=== PATIENT | female | born 1965 | race Caucasian/White ===

== ENCOUNTER 2018-05-23 09:00 | Outpatient (RCR) | payer OTHER, SELFPAY ==
--- NOTE | 2018-03-11 07:50 | PT.OIE ---
Current Diagnoses Other female genital prolapse (03/07/18) Past Surgical History (Last Updated 02/08/18 @ 11:02 by Yaneli Main) Status post bilateral salpingo-oophorectomy (BSO) (Resolved 11/26/17) Status post laparoscopic supracervical hysterectomy (Resolved 11/26/17) Provider Visit Care Team Role Provider Type Summer Conteh PA-C Family Provider Advanced Pacu Rn Primary Care Provider Specialty: Medical Address: [address] [place] [address], [address] Email: [email or web address] Lucy Ling MD Attending Provider Physician Specialty: PETROLEUM INSPECTOR Address: [address] [place] [address], [address] Email: [email or web address] Physical Therapy Initial Evaluation PT-OP-A Visit Information Start: 03/11/18 07:26 Freq: Status: Active Protocol: Document 03/07/18 09:00 [facility] (Rec: 03/11/18 07:50 [facility] [email or web address]) Out-Patient Physical Therapy Visit Information Visit Information Visit Type Initial Evaluation Visit Start Time 09:00 Visit Stop Time 09:45 Total Visit Minutes 45 Visit Number 1 Evaluation Information Evaluation Date 03/07/18 PT-OP-B Current Condition Start: 03/11/18 07:26 Freq: Status: Active Protocol: Document 03/07/18 09:00 [facility] (Rec: 03/11/18 07:50 [facility] [email or web address]) Current Condition History of Current Condition Onset Date symptoms began 6-7 years ago Current Complaints pelvic floor weakness, pelvic pressure and heaviness History of Current Condition Charmaine describes symptoms that began after her babies were born. She had 3 vaginal deliveries and followign these under went a umbilical hernia repair. 6-7 years ago she began feeling pelvic pressure symptoms and had to stop running. Fibroids were discovered and she elected to undergo a complete hysterectomy 11/26/17. Fracisco reports her surgery went well she did have a hematoma right about the pubic bone following surgery and she is still a little tender in this area. She reports recently she began feeling like she was getting a UTI but has increased her water consumption and this has helped. Her chief complaint at this time is pelvic pressure and inability to run for exercise. Treatment Goals Patient/Caregiver Goals To eliminate pelvic pressure allowing her to be more active again PT-OP-F Manual Assessment Start: 03/11/18 07:26 Freq: Status: Active Protocol: Document 03/07/18 09:00 [facility] (Rec: 03/11/18 07:50 [facility] [email or web address]) Manual Assessments Soft Tissue Assessment Soft Tissue Mobility Assessment Myofascial tightness in the suprapubic fascia and over the bladder Joint Mobility Assessment Joint Mobility Assessment + ASLR test for SI instability on the right side PT-OP-I Pelvic Floor Start: 03/11/18 07:26 Freq: Status: Active Protocol: Document 03/07/18 09:00 [facility] (Rec: 03/11/18 07:50 [facility] [email or web address]) Pelvic Floor Assessment Urine Pelvic Floor Surgery hysterectomy Urinary Symptoms Prolapse Falling Out Feeling/Heavy Leakage Cause Cough Exercise Other Leakage Causes only with hard coughing or running Pelvic Clock Pelvic Clock 12-3 Atrophy Pelvic Clock 3-6 Atrophy Pelvic Clock 6-9 Atrophy Pelvic Clock 9-12 Atrophy Pelvic Clock Other Jacqeuline is able to facilitate her pelvic floor but is weaker Left>Right illiococcygeus and has difficult with lateral wall recruitment Prolapse Cystocele Grade 2 Contraction Ability Manual Muscle Testing Left 2 Manual Muscle Testing Right 3 Manual Muscle Testing Anterior 3 Manual Muscle Testing Posterior 3 Muscle Endurance (Seconds) 4 PT-OP-M Strength Start: 03/11/18 07:26 Freq: Status: Active Protocol: Document 03/07/18 09:00 [facility] (Rec: 03/11/18 07:50 [facility] [email or web address]) Trunk Strength Trunk Manual Muscle Testing Core Stabilization Decreased ability to facilitate the transverse abdominal muscle and positive ASLR test on the right for left sided instability Hip Strength Hip Manual Muscle Testing Right Abduction 4 Good External Rotation 4 Good Left Abduction 3+ Fair+ External Rotation 3+ Fair+ PT-OP-T Assessment and Plan Start: 03/11/18 07:26 Freq: Status: Active Protocol: Document 03/07/18 09:00 [facility] (Rec: 03/11/18 07:50 [facility] [email or web address]) Physical Therapy Assessment Rehab Potential Rehabilitation Potential Excellent Evaluation Complexity Number of Personal Factors/Comorbidities 0 Number of Body Systems Impaired 1-2 Clinical Presentation at Evaluation Stable Impairments Impairments Activity Tolerance Functional Activities Soft Tissue Mobility Strength Tone Goals Four Impairment Myofascial restrictions across the suprapubic fascia Short Term Goal (STG) Decrease myofascial restrictions across the subrapubic fascia with stretches and MFR STG Duration 5 weeks Three Impairment Decreased endurance of the pelvic floor Short Term Goal (STG) Improve endurance of the pelvic floor contraction to 10 second hold time or greater in supine STG Duration 5 weeks Two Impairment Weakness of the pelvic floor musculature Title Searcher Goal (LTG) Improve pelvic floor strength to 4/5 or greater with MMT LTG Duration 8 weeks One Impairment complaints of pelvic floor weakness and pelvic pressure worse with standing Prison Goal (LTG) Deidra is educated in pelvic floor facilitation and strengthening and with improved strength she has decreased complaints of pelvic pressure LTG Duration 8 weeks Assessment Summary Assessment Deidra presents to PT s/p total hysterectomy on 11/25/17 and with a history of pelvic pressure and heaviness that began after childbirth and vaginal deliveries x 3. She has weakness throughout the levator ani with the greatest deficit on the left lateral wall of the levator ani. She is also weak in with her transverse abdominal muscles on this side as well with pelvic instability and decreased force closure on the left SI joint. She is limited with endurance as well . She is a great candidate for pelvic floor strengthening utilizing EMG biofeedback and NMES for improved sensation of pelvic floor contraction. Thank you for this referral. Physical Therapy Plan Frequency and Duration Frequency of Treatment 1x/Week Duration of Treatment 8 weeks Plan of Care Start Date 03/07/18 Plan of Care End Date 05/02/18 Therapeutic Interventions Therapeutic Interventions Home Exercise Program Manual Therapy Neuromuscular Re-education Self-Care/Home Management Soft Tissue Mobilization Therapeutic Exercises Modalities Biofeedback Electric Stimulation Other Therapeutic Interventions home rental of NMES unit for improved pelvic floor facilitation
--- NOTE | 2018-03-11 07:50 | PT.OPPOC ---
Current Diagnoses Other female genital prolapse (03/07/18) Provider Visit Care Team Role Provider Type Summer Conteh PA-C Family Provider Advanced Returns Clerk Primary Care Provider Specialty: Medical Address: [address] [place] [address], [address] Email: [email or web address] Lucy Ling MD Attending Provider Physician Specialty: PESTICIDE CHEMIST Address: [address] [place] [address], [address] Email: [email or web address] Plan Of Care PT-OP-T Assessment and Plan Start: 03/11/18 07:26 Freq: Status: Active Protocol: Document 03/07/18 09:00 [facility] (Rec: 03/11/18 07:50 [facility] [email or web address]) Physical Therapy Assessment Rehab Potential Rehabilitation Potential Excellent Evaluation Complexity Number of Personal Factors/Comorbidities 0 Number of Body Systems Impaired 1-2 Clinical Presentation at Evaluation Stable Impairments Impairments Activity Tolerance Functional Activities Soft Tissue Mobility Strength Tone Goals Four Impairment Myofascial restrictions across the suprapubic fascia Short Term Goal (STG) Decrease myofascial restrictions across the subrapubic fascia with stretches and MFR STG Duration 5 weeks Three Impairment Decreased endurance of the pelvic floor Short Term Goal (STG) Improve endurance of the pelvic floor contraction to 10 second hold time or greater in supine STG Duration 5 weeks Two Impairment Weakness of the pelvic floor musculature Shelter Goal (LTG) Improve pelvic floor strength to 4/5 or greater with MMT LTG Duration 8 weeks One Impairment complaints of pelvic floor weakness and pelvic pressure worse with standing Shelter Goal (LTG) Deidra is educated in pelvic floor facilitation and strengthening and with improved strength she has decreased complaints of pelvic pressure LTG Duration 8 weeks Assessment Summary Assessment Deidra presents to PT s/p total hysterectomy on 11/25/17 and with a history of pelvic pressure and heaviness that began after childbirth and vaginal deliveries x 3. She has weakness throughout the levator ani with the greatest deficit on the left lateral wall of the levator ani. She is also weak in with her transverse abdominal muscles on this side as well with pelvic instability and decreased force closure on the left SI joint. She is limited with endurance as well . She is a great candidate for pelvic floor strengthening utilizing EMG biofeedback and NMES for improved sensation of pelvic floor contraction. Thank you for this referral. Physical Therapy Plan Frequency and Duration Frequency of Treatment 1x/Week Duration of Treatment 8 weeks Plan of Care Start Date 03/07/18 Plan of Care End Date 05/02/18 Therapeutic Interventions Therapeutic Interventions Home Exercise Program Manual Therapy Neuromuscular Re-education Self-Care/Home Management Soft Tissue Mobilization Therapeutic Exercises Modalities Biofeedback Electric Stimulation Other Therapeutic Interventions home rental of NMES unit for improved pelvic floor facilitation Plan of Care Dates Plan of Care Start Date 03/07/18 Plan of Care End Date 05/02/18 Please Sign and Return: I have reviewed this Plan of Care and certify that the skilled therapy services above are required to meet the patient?s needs. Physician Signature Date Printed Name and Credentials Clinical Instructor Signature Printed Name and Credentials
--- NOTE | 2018-03-21 18:37 | PT.OTN ---
Current Diagnoses Other female genital prolapse (03/21/18) Physical Therapy Treatment Note PT-OP-A Visit Information Start: 03/11/18 07:26 Freq: Status: Active Protocol: Document 03/21/18 09:00 [facility] (Rec: 03/21/18 12:56 [facility] [email or web address]) Out-Patient Physical Therapy Visit Information Visit Information Visit Type Treatment Note Visit Start Time 09:00 Visit Stop Time 09:45 Total Visit Minutes 45 Visit Number 2 Evaluation Information Evaluation Date 03/07/18 PT-OP-B Current Condition Start: 03/11/18 07:26 Freq: Status: Active Protocol: Document 03/07/18 09:00 [facility] (Rec: 03/11/18 07:50 [facility] [email or web address]) Current Condition History of Current Condition Onset Date symptoms began 6-7 years ago Current Complaints pelvic floor weakness, pelvic pressure and heaviness History of Current Condition Charmaine describes symptoms that began after her babies were born. She had 3 vaginal deliveries and followign these under went a umbilical hernia repair. 6-7 years ago she began feeling pelvic pressure symptoms and had to stop running. Fibroids were discovered and she elected to undergo a complete hysterectomy 11/26/17. Fracisco reports her surgery went well she did have a hematoma right about the pubic bone following surgery and she is still a little tender in this area. She reports recently she began feeling like she was getting a UTI but has increased her water consumption and this has helped. Her chief complaint at this time is pelvic pressure and inability to run for exercise. Treatment Goals Patient/Caregiver Goals To eliminate pelvic pressure allowing her to be more active again PT-OP-F Manual Assessment Start: 03/11/18 07:26 Freq: Status: Active Protocol: Document 03/07/18 09:00 [facility] (Rec: 03/11/18 07:50 [facility] [email or web address]) Manual Assessments Soft Tissue Assessment Soft Tissue Mobility Assessment Myofascial tightness in the suprapubic fascia and over the bladder Joint Mobility Assessment Joint Mobility Assessment + ASLR test for SI instability on the right side PT-OP-I Pelvic Floor Start: 03/11/18 07:26 Freq: Status: Active Protocol: Document 03/07/18 09:00 [facility] (Rec: 03/11/18 07:50 [facility] [email or web address]) Pelvic Floor Assessment Urine Pelvic Floor Surgery hysterectomy Urinary Symptoms Prolapse Falling Out Feeling/Heavy Leakage Cause Cough Exercise Other Leakage Causes only with hard coughing or running Pelvic Clock Pelvic Clock 12-3 Atrophy Pelvic Clock 3-6 Atrophy Pelvic Clock 6-9 Atrophy Pelvic Clock 9-12 Atrophy Pelvic Clock Other Vicki is able to facilitate her pelvic floor but is weaker Left>Right illiococcygeus and has difficult with lateral wall recruitment Prolapse Cystocele Grade 2 Contraction Ability Manual Muscle Testing Left 2 Manual Muscle Testing Right 3 Manual Muscle Testing Anterior 3 Manual Muscle Testing Posterior 3 Muscle Endurance (Seconds) 4 PT-OP-M Strength Start: 03/11/18 07:26 Freq: Status: Active Protocol: Document 03/07/18 09:00 [facility] (Rec: 03/11/18 07:50 [facility] [email or web address]) Trunk Strength Trunk Manual Muscle Testing Core Stabilization Decreased ability to facilitate the transverse abdominal muscle and positive ASLR test on the right for left sided instability Hip Strength Hip Manual Muscle Testing Right Abduction 4 Good External Rotation 4 Good Left Abduction 3+ Fair+ External Rotation 3+ Fair+ PT-OP-Q Treatments Start: 03/11/18 07:26 Freq: Status: Active Protocol: Document 03/21/18 09:00 [facility] (Rec: 03/21/18 18:34 [facility] [email or web address]) Therapeutic Exercises Supine Exercises 3 Supine Exercise Name ball squeeze with pelvic floor contractions 2 Supine Exercise Name pelvic floor long holds with EMG biofeedback 1 Supine Exercise Name TA brace with marches Manual Therapy Treatment Soft Tissue Mobilization 1 Body Location MFR over the supra pubic fascia and ILU massage Manual Techniques 1 Type MET right anterior rotation PT-OP-T Assessment and Plan Start: 03/11/18 07:26 Freq: Status: Active Protocol: Document 03/21/18 09:00 [facility] (Rec: 03/21/18 12:56 [facility] [email or web address]) Physical Therapy Assessment Assessment Summary Assessment Began EMG biofeedback today and Deidra was able to get 10.3 uv average and 16.3 uv max contraction. We worked on MFR of the suprapubic fascia and she was instructed in ILU self massage. Physical Therapy Plan Frequency and Duration Frequency of Treatment 1x/Week Duration of Treatment 8 weeks Plan of Care Start Date 03/07/18 Plan of Care End Date 05/02/18 Therapeutic Interventions Therapeutic Interventions Home Exercise Program Manual Therapy Neuromuscular Re-education Self-Care/Home Management Soft Tissue Mobilization Therapeutic Exercises Modalities Biofeedback Electric Stimulation Other Therapeutic Interventions home rental of NMES unit for improved pelvic floor facilitation Next Visit Focus/Plan Next Note Type Treatment Note Next Visit Plan continue working on pelvic floor stabilization and SI joint stabilization
--- NOTE | 2018-04-04 11:55 | PT.OTN ---
Current Diagnoses Other female genital prolapse (04/04/18) Physical Therapy Treatment Note PT-OP-A Visit Information Start: 03/11/18 07:26 Freq: Status: Active Protocol: Document 04/04/18 11:48 [facility] (Rec: 04/04/18 11:54 [facility] [email or web address]) Out-Patient Physical Therapy Visit Information Visit Information Visit Type Treatment Note Visit Start Time 09:00 Visit Stop Time 09:45 Total Visit Minutes 45 Visit Number 3 PT-OP-B Current Condition Start: 03/11/18 07:26 Freq: Status: Active Protocol: Document 03/07/18 09:00 [facility] (Rec: 03/11/18 07:50 [facility] [email or web address]) Current Condition History of Current Condition Onset Date symptoms began 6-7 years ago Current Complaints pelvic floor weakness, pelvic pressure and heaviness History of Current Condition Charmaine describes symptoms that began after her babies were born. She had 3 vaginal deliveries and followign these under went a umbilical hernia repair. 6-7 years ago she began feeling pelvic pressure symptoms and had to stop running. Fibroids were discovered and she elected to undergo a complete hysterectomy 11/26/17. Fracisco reports her surgery went well she did have a hematoma right about the pubic bone following surgery and she is still a little tender in this area. She reports recently she began feeling like she was getting a UTI but has increased her water consumption and this has helped. Her chief complaint at this time is pelvic pressure and inability to run for exercise. Treatment Goals Patient/Caregiver Goals To eliminate pelvic pressure allowing her to be more active again PT-OP-C Subjective Start: 04/04/18 11:54 Freq: Status: Active Protocol: Document 04/04/18 11:54 [facility] (Rec: 04/04/18 11:55 [facility] [email or web address]) OP-PT Subjective Patient Comments Patient Comments Deidra reports she traveled this past week so it was difficult getting in all of her exercises. She did feel like she was getting symptoms of a UTI when she got home and has been trying to increase her water intake PT-OP-F Manual Assessment Start: 03/11/18 07:26 Freq: Status: Active Protocol: Document 03/07/18 09:00 [facility] (Rec: 03/11/18 07:50 [facility] [email or web address]) Manual Assessments Soft Tissue Assessment Soft Tissue Mobility Assessment Myofascial tightness in the suprapubic fascia and over the bladder Joint Mobility Assessment Joint Mobility Assessment + ASLR test for SI instability on the right side PT-OP-I Pelvic Floor Start: 03/11/18 07:26 Freq: Status: Active Protocol: Document 03/07/18 09:00 [facility] (Rec: 03/11/18 07:50 [facility] [email or web address]) Pelvic Floor Assessment Urine Pelvic Floor Surgery hysterectomy Urinary Symptoms Prolapse Falling Out Feeling/Heavy Leakage Cause Cough Exercise Other Leakage Causes only with hard coughing or running Pelvic Clock Pelvic Clock 12-3 Atrophy Pelvic Clock 3-6 Atrophy Pelvic Clock 6-9 Atrophy Pelvic Clock 9-12 Atrophy Pelvic Clock Other Jacqeucarine is able to facilitate her pelvic floor but is weaker Left>Right illiococcygeus and has difficult with lateral wall recruitment Prolapse Cystocele Grade 2 Contraction Ability Manual Muscle Testing Left 2 Manual Muscle Testing Right 3 Manual Muscle Testing Anterior 3 Manual Muscle Testing Posterior 3 Muscle Endurance (Seconds) 4 PT-OP-M Strength Start: 03/11/18 07:26 Freq: Status: Active Protocol: Document 03/07/18 09:00 [facility] (Rec: 03/11/18 07:50 [facility] [email or web address]) Trunk Strength Trunk Manual Muscle Testing Core Stabilization Decreased ability to facilitate the transverse abdominal muscle and positive ASLR test on the right for left sided instability Hip Strength Hip Manual Muscle Testing Right Abduction 4 Good External Rotation 4 Good Left Abduction 3+ Fair+ External Rotation 3+ Fair+ PT-OP-Q Treatments Start: 03/11/18 07:26 Freq: Status: Active Protocol: Document 04/04/18 11:48 [facility] (Rec: 04/04/18 11:54 [facility] [email or web address]) Therapeutic Exercises Supine Exercises 5 Supine Exercise Name iliopsoas stretch in anastasiya test position Comments Right tighter than left 4 Supine Exercise Name quick contractions 3 Supine Exercise Name ball squeeze with pelvic floor contractions 2 Supine Exercise Name pelvic floor long holds with EMG biofeedback Comments 10 seconds on 10 seconds off 1 Supine Exercise Name TA brace with marches Comments added in level 1 b and heel slides Sidelying Exercises 1 Sidelying Exercise Name clam shells Reps/Minutes 2 x 10 Manual Therapy Treatment Soft Tissue Mobilization 1 Body Location MFR over the supra pubic fascia and ILU massage Self-Care/Home Management Treatment Education Patient Education Home Exercise Program Other Education education on taking time to empty the bladder and stretching arms overhead to fully eliminate the urine from the urethra PT-OP-T Assessment and Plan Start: 03/11/18 07:26 Freq: Status: Active Protocol: Document 04/04/18 11:48 [facility] (Rec: 04/04/18 11:54 [facility] [email or web address]) Physical Therapy Assessment Assessment Summary Assessment improved average on EMG biofeedback today to 12.0 uv and maximum of 24.4 uv. Reviewed ILU massage and worked to release right sided myofascial tightness. Added in clam shells and level 1 b lower abdominal progression. Bilateral hips are shakey with the clam shell exercise Physical Therapy Plan Frequency and Duration Frequency of Treatment 1x/Week Duration of Treatment 8 weeks Plan of Care Start Date 03/07/18 Plan of Care End Date 05/02/18 Therapeutic Interventions Therapeutic Interventions Home Exercise Program Manual Therapy Neuromuscular Re-education Self-Care/Home Management Soft Tissue Mobilization Therapeutic Exercises Modalities Biofeedback Electric Stimulation Other Therapeutic Interventions home rental of NMES unit for improved pelvic floor facilitation, trial of NMES next visit Next Visit Focus/Plan Next Note Type Treatment Note Next Visit Plan continue working on pelvic floor stabilization and SI joint stabilization. Trial of NMES unit if Deidra bowser
--- NOTE | 2018-04-14 14:33 | PT.OTN ---
Current Diagnoses Other female genital prolapse (04/11/18) Physical Therapy Treatment Note PT-OP-A Visit Information Start: 03/11/18 07:26 Freq: Status: Active Protocol: Document 04/11/18 09:00 [facility] (Rec: 04/14/18 14:33 [facility] [email or web address]) Out-Patient Physical Therapy Visit Information Visit Information Visit Type Treatment Note Visit Start Time 09:00 Visit Stop Time 09:45 Total Visit Minutes 45 Visit Number 4 Evaluation Information Evaluation Date 03/07/18 PT-OP-B Current Condition Start: 03/11/18 07:26 Freq: Status: Active Protocol: Document 03/07/18 09:00 [facility] (Rec: 03/11/18 07:50 [facility] [email or web address]) Current Condition History of Current Condition Onset Date symptoms began 6-7 years ago Current Complaints pelvic floor weakness, pelvic pressure and heaviness History of Current Condition Charmaine describes symptoms that began after her babies were born. She had 3 vaginal deliveries and followign these under went a umbilical hernia repair. 6-7 years ago she began feeling pelvic pressure symptoms and had to stop running. Fibroids were discovered and she elected to undergo a complete hysterectomy 11/26/17. Fracisco reports her surgery went well she did have a hematoma right about the pubic bone following surgery and she is still a little tender in this area. She reports recently she began feeling like she was getting a UTI but has increased her water consumption and this has helped. Her chief complaint at this time is pelvic pressure and inability to run for exercise. Treatment Goals Patient/Caregiver Goals To eliminate pelvic pressure allowing her to be more active again PT-OP-C Subjective Start: 04/04/18 11:54 Freq: Status: Active Protocol: Document 04/11/18 09:00 [facility] (Rec: 04/14/18 14:33 [facility] [email or web address]) OP-PT Subjective Patient Comments Patient Comments still has daysd where she is feeling pelvic pressure and soreness in the anterior pelvic region PT-OP-F Manual Assessment Start: 03/11/18 07:26 Freq: Status: Active Protocol: Document 03/07/18 09:00 [facility] (Rec: 03/11/18 07:50 [facility] [email or web address]) Manual Assessments Soft Tissue Assessment Soft Tissue Mobility Assessment Myofascial tightness in the suprapubic fascia and over the bladder Joint Mobility Assessment Joint Mobility Assessment + ASLR test for SI instability on the right side PT-OP-I Pelvic Floor Start: 03/11/18 07:26 Freq: Status: Active Protocol: Document 03/07/18 09:00 [facility] (Rec: 03/11/18 07:50 [facility] [email or web address]) Pelvic Floor Assessment Urine Pelvic Floor Surgery hysterectomy Urinary Symptoms Prolapse Falling Out Feeling/Heavy Leakage Cause Cough Exercise Other Leakage Causes only with hard coughing or running Pelvic Clock Pelvic Clock 12-3 Atrophy Pelvic Clock 3-6 Atrophy Pelvic Clock 6-9 Atrophy Pelvic Clock 9-12 Atrophy Pelvic Clock Other Vicki is able to facilitate her pelvic floor but is weaker Left>Right illiococcygeus and has difficult with lateral wall recruitment Prolapse Cystocele Grade 2 Contraction Ability Manual Muscle Testing Left 2 Manual Muscle Testing Right 3 Manual Muscle Testing Anterior 3 Manual Muscle Testing Posterior 3 Muscle Endurance (Seconds) 4 PT-OP-M Strength Start: 03/11/18 07:26 Freq: Status: Active Protocol: Document 03/07/18 09:00 [facility] (Rec: 03/11/18 07:50 [facility] [email or web address]) Trunk Strength Trunk Manual Muscle Testing Core Stabilization Decreased ability to facilitate the transverse abdominal muscle and positive ASLR test on the right for left sided instability Hip Strength Hip Manual Muscle Testing Right Abduction 4 Good External Rotation 4 Good Left Abduction 3+ Fair+ External Rotation 3+ Fair+ PT-OP-Q Treatments Start: 03/11/18 07:26 Freq: Status: Active Protocol: Document 04/11/18 09:00 [facility] (Rec: 04/14/18 14:33 [facility] [email or web address]) Therapeutic Exercises Supine Exercises 5 Supine Exercise Name iliopsoas stretch in anastasiya test position Comments Right tighter than left 4 Supine Exercise Name quick contractions 3 Supine Exercise Name ball squeeze with pelvic floor contractions 2 Supine Exercise Name pelvic floor long holds with EMG biofeedback 1 Supine Exercise Name TA brace with mounikaes Manual Therapy Treatment Soft Tissue Mobilization 1 Body Location MFR over the supra pubic fascia and ILU massage PT-OP-T Assessment and Plan Start: 03/11/18 07:26 Freq: Status: Active Protocol: Document 04/11/18 09:00 [facility] (Rec: 04/14/18 14:33 [facility] [email or web address]) Physical Therapy Assessment Assessment Summary Assessment max on EMG biofeedback is 23 today. encouraged HEP as Deidra can tolerate. 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 Begin working on strengthening in upright positions Physical Therapy Plan Frequency and Duration Frequency of Treatment 1x/Week Duration of Treatment 8 weeks Plan of Care Start Date 03/07/18 Plan of Care End Date 05/02/18 Therapeutic Interventions Therapeutic Interventions Home Exercise Program Manual Therapy Neuromuscular Re-education Self-Care/Home Management Soft Tissue Mobilization Therapeutic Exercises Modalities Biofeedback Electric Stimulation Other Therapeutic Interventions home rental of NMES unit for improved pelvic floor facilitation, trial of NMES next visit Next Visit Focus/Plan Next Note Type Treatment Note Next Visit Plan continue working on pelvic floor stabilization and SI joint stabilization. Trial of NMES unit if Deidra agrees
--- NOTE | 2018-05-09 11:57 | PT.OTN ---
Current Diagnoses Other female genital prolapse (05/09/18) Physical Therapy Treatment Note PT-OP-A Visit Information Start: 03/11/18 07:26 Freq: Status: Active Protocol: Document 05/09/18 11:48 [facility] (Rec: 05/09/18 11:55 [facility] [email or web address]) Out-Patient Physical Therapy Visit Information Visit Information Visit Type Progress Note Visit Start Time 09:00 Visit Stop Time 09:45 Total Visit Minutes 45 Visit Number 5 Evaluation Information Evaluation Date 03/07/18 PT-OP-B Current Condition Start: 03/11/18 07:26 Freq: Status: Active Protocol: Document 03/07/18 09:00 [facility] (Rec: 03/11/18 07:50 [facility] [email or web address]) Current Condition History of Current Condition Onset Date symptoms began 6-7 years ago Current Complaints pelvic floor weakness, pelvic pressure and heaviness History of Current Condition Charmaine describes symptoms that began after her babies were born. She had 3 vaginal deliveries and followign these under went a umbilical hernia repair. 6-7 years ago she began feeling pelvic pressure symptoms and had to stop running. Fibroids were discovered and she elected to undergo a complete hysterectomy 11/26/17. Fracisco reports her surgery went well she did have a hematoma right about the pubic bone following surgery and she is still a little tender in this area. She reports recently she began feeling like she was getting a UTI but has increased her water consumption and this has helped. Her chief complaint at this time is pelvic pressure and inability to run for exercise. Treatment Goals Patient/Caregiver Goals To eliminate pelvic pressure allowing her to be more active again PT-OP-C Subjective Start: 04/04/18 11:54 Freq: Status: Active Protocol: Document 05/09/18 11:48 [facility] (Rec: 05/09/18 11:55 [facility] [email or web address]) OP-PT Subjective Patient Comments Patient Comments Silvana reports she is starting to be able to increase her activity and run a little. She suprised her self that she was able to run a bit and not feel the pressure. She does still feel some imflammation in her tissue on the right anterior pelvis where the hematoma was and by the end of her work day feels some pelvic pressure. SHe does note improvement PT-OP-F Manual Assessment Start: 03/11/18 07:26 Freq: Status: Active Protocol: Document 03/07/18 09:00 [facility] (Rec: 03/11/18 07:50 [facility] [email or web address]) Manual Assessments Soft Tissue Assessment Soft Tissue Mobility Assessment Myofascial tightness in the suprapubic fascia and over the bladder Joint Mobility Assessment Joint Mobility Assessment + ASLR test for SI instability on the right side PT-OP-I Pelvic Floor Start: 03/11/18 07:26 Freq: Status: Active Protocol: Document 03/07/18 09:00 [facility] (Rec: 03/11/18 07:50 [facility] [email or web address]) Pelvic Floor Assessment Urine Pelvic Floor Surgery hysterectomy Urinary Symptoms Prolapse Falling Out Feeling/Heavy Leakage Cause Cough Exercise Other Leakage Causes only with hard coughing or running Pelvic Clock Pelvic Clock 12-3 Atrophy Pelvic Clock 3-6 Atrophy Pelvic Clock 6-9 Atrophy Pelvic Clock 9-12 Atrophy Pelvic Clock Other Jacqeuline is able to facilitate her pelvic floor but is weaker Left>Right illiococcygeus and has difficult with lateral wall recruitment Prolapse Cystocele Grade 2 Contraction Ability Manual Muscle Testing Left 2 Manual Muscle Testing Right 3 Manual Muscle Testing Anterior 3 Manual Muscle Testing Posterior 3 Muscle Endurance (Seconds) 4 PT-OP-M Strength Start: 03/11/18 07:26 Freq: Status: Active Protocol: Document 03/07/18 09:00 [facility] (Rec: 03/11/18 07:50 [facility] [email or web address]) Trunk Strength Trunk Manual Muscle Testing Core Stabilization Decreased ability to facilitate the transverse abdominal muscle and positive ASLR test on the right for left sided instability Hip Strength Hip Manual Muscle Testing Right Abduction 4 Good External Rotation 4 Good Left Abduction 3+ Fair+ External Rotation 3+ Fair+ PT-OP-Q Treatments Start: 03/11/18 07:26 Freq: Status: Active Protocol: Document 05/09/18 11:48 [facility] (Rec: 05/09/18 11:55 [facility] [email or web address]) Therapeutic Exercises Supine Exercises 4 Supine Exercise Name quick contractions 3 Supine Exercise Name ball squeeze with pelvic floor contractions 2 Supine Exercise Name pelvic floor long holds with EMG biofeedback 1 Supine Exercise Name TA brace with marches Sidelying Exercises 2 Sidelying Exercise Name sidelying leg lifts Reps/Minutes 2 x 10 1 Sidelying Exercise Name clam shells Resistance yellow theraband Reps/Minutes 2 x 10 Other Exercises 4 Other Exercise Name cobra stretch for the anterior pelvic fascia 3 Other Exercise Name quadraped OA, OL OAL 2 Other Exercise Name foam roll stretch 1 Other Exercise Name iliopsoas stretch in a lunge position and half kneeling PT-OP-T Assessment and Plan Start: 03/11/18 07:26 Freq: Status: Active Protocol: Document 05/09/18 11:48 [facility] (Rec: 05/09/18 11:55 [facility] [email or web address]) Physical Therapy Assessment Progress Towards Goals Progress Towards Goals Progressing Toward Goals Assessment Summary Assessment Silvana has been seen for 6 visits in PT and is showing good overall progress with physical therapy. She is stronger in her pelvic floor and is noting she can tolerate a small amount of running now . She still feels some inflammation from where the hematoma was and we are working on improved tissue mobility in this region. She has been able to tolerate some dynamic stabilization exercises now as well. She would benefit from continued PT Physical Therapy Plan Frequency and Duration Frequency of Treatment 1x/Week Duration of Treatment 8 weeks Plan of Care Start Date 05/09/18 Plan of Care End Date 06/27/18 Therapeutic Interventions Therapeutic Interventions Home Exercise Program Manual Therapy Neuromuscular Re-education Self-Care/Home Management Soft Tissue Mobilization Therapeutic Activities Modalities Biofeedback
--- NOTE | 2018-05-16 14:02 | PT.OTN ---
Current Diagnoses Other female genital prolapse (05/16/18) Physical Therapy Treatment Note PT-OP-A Visit Information Start: 03/11/18 07:26 Freq: Status: Active Protocol: Document 05/16/18 13:55 [facility] (Rec: 05/16/18 14:01 [facility] [email or web address]) Out-Patient Physical Therapy Visit Information Visit Information Visit Type Treatment Note Visit Start Time 09:00 Visit Stop Time 09:45 Total Visit Minutes 45 Visit Number 6 Evaluation Information Evaluation Date 03/07/18 PT-OP-B Current Condition Start: 03/11/18 07:26 Freq: Status: Active Protocol: Document 03/07/18 09:00 [facility] (Rec: 03/11/18 07:50 [facility] [email or web address]) Current Condition History of Current Condition Onset Date symptoms began 6-7 years ago Current Complaints pelvic floor weakness, pelvic pressure and heaviness History of Current Condition Charmaine describes symptoms that began after her babies were born. She had 3 vaginal deliveries and followign these under went a umbilical hernia repair. 6-7 years ago she began feeling pelvic pressure symptoms and had to stop running. Fibroids were discovered and she elected to undergo a complete hysterectomy 11/26/17. Fracisco reports her surgery went well she did have a hematoma right about the pubic bone following surgery and she is still a little tender in this area. She reports recently she began feeling like she was getting a UTI but has increased her water consumption and this has helped. Her chief complaint at this time is pelvic pressure and inability to run for exercise. Treatment Goals Patient/Caregiver Goals To eliminate pelvic pressure allowing her to be more active again PT-OP-C Subjective Start: 04/04/18 11:54 Freq: Status: Active Protocol: Document 05/16/18 13:55 [facility] (Rec: 05/16/18 14:01 [facility] [email or web address]) OP-PT Subjective Patient Comments Patient Comments Silvana reports the stretches seem to help and things are better. She hasn't tried running again PT-OP-F Manual Assessment Start: 03/11/18 07:26 Freq: Status: Active Protocol: Document 03/07/18 09:00 [facility] (Rec: 03/11/18 07:50 [facility] [email or web address]) Manual Assessments Soft Tissue Assessment Soft Tissue Mobility Assessment Myofascial tightness in the suprapubic fascia and over the bladder Joint Mobility Assessment Joint Mobility Assessment + ASLR test for SI instability on the right side PT-OP-I Pelvic Floor Start: 03/11/18 07:26 Freq: Status: Active Protocol: Document 03/07/18 09:00 [facility] (Rec: 03/11/18 07:50 [facility] [email or web address]) Pelvic Floor Assessment Urine Pelvic Floor Surgery hysterectomy Urinary Symptoms Prolapse Falling Out Feeling/Heavy Leakage Cause Cough Exercise Other Leakage Causes only with hard coughing or running Pelvic Clock Pelvic Clock 12-3 Atrophy Pelvic Clock 3-6 Atrophy Pelvic Clock 6-9 Atrophy Pelvic Clock 9-12 Atrophy Pelvic Clock Other Jacqeuline is able to facilitate her pelvic floor but is weaker Left>Right illiococcygeus and has difficult with lateral wall recruitment Prolapse Cystocele Grade 2 Contraction Ability Manual Muscle Testing Left 2 Manual Muscle Testing Right 3 Manual Muscle Testing Anterior 3 Manual Muscle Testing Posterior 3 Muscle Endurance (Seconds) 4 PT-OP-M Strength Start: 03/11/18 07:26 Freq: Status: Active Protocol: Document 03/07/18 09:00 [facility] (Rec: 03/11/18 07:50 [facility] [email or web address]) Trunk Strength Trunk Manual Muscle Testing Core Stabilization Decreased ability to facilitate the transverse abdominal muscle and positive ASLR test on the right for left sided instability Hip Strength Hip Manual Muscle Testing Right Abduction 4 Good External Rotation 4 Good Left Abduction 3+ Fair+ External Rotation 3+ Fair+ PT-OP-Q Treatments Start: 03/11/18 07:26 Freq: Status: Active Protocol: Document 05/16/18 13:55 [facility] (Rec: 05/16/18 14:01 [facility] [email or web address]) Therapeutic Exercises Supine Exercises 6 Supine Exercise Name roll outs with theraband 5 Supine Exercise Name iliopsoas stretch in anastasiya test position Comments Right tighter than left 4 Supine Exercise Name quick contractions 2 Supine Exercise Name pelvic floor long holds with EMG biofeedback Other Exercises 4 Other Exercise Name cobra stretch for the anterior pelvic fascia 3 Other Exercise Name quadraped OA, OL OAL 2 Other Exercise Name foam roll stretch 1 Other Exercise Name iliopsoas stretch in a lunge position and half kneeling PT-OP-T Assessment and Plan Start: 03/11/18 07:26 Freq: Status: Active Protocol: Document 05/16/18 13:55 [facility] (Rec: 05/16/18 14:01 [facility] [email or web address]) Physical Therapy Assessment Assessment Summary Assessment improved contraction intensity today. Her average strength in March was 10.3 uv and now it is 20 uv. Physical Therapy Plan Next Visit Focus/Plan Next Note Type Treatment Note Next Visit Plan continue for one more visit and review all extablished exercises then most likely DC to a HEP
--- NOTE | 2018-05-28 17:32 | PT.OTN ---
Current Diagnoses Other female genital prolapse (05/23/18) Physical Therapy Treatment Note PT-OP-A Visit Information Start: 03/11/18 07:26 Freq: Status: Active Protocol: Document 05/23/18 17:44 [facility] (Rec: 05/23/18 17:45 [facility] [email or web address]) Out-Patient Physical Therapy Visit Information Visit Information Visit Type Treatment Note Visit Start Time 09:00 Visit Stop Time 09:45 Total Visit Minutes 45 Visit Number 7 PT-OP-B Current Condition Start: 03/11/18 07:26 Freq: Status: Active Protocol: Document 03/07/18 09:00 [facility] (Rec: 03/11/18 07:50 [facility] [email or web address]) Current Condition History of Current Condition Onset Date symptoms began 6-7 years ago Current Complaints pelvic floor weakness, pelvic pressure and heaviness History of Current Condition Charmaine describes symptoms that began after her babies were born. She had 3 vaginal deliveries and followign these under went a umbilical hernia repair. 6-7 years ago she began feeling pelvic pressure symptoms and had to stop running. Fibroids were discovered and she elected to undergo a complete hysterectomy 11/26/17. Fracisco reports her surgery went well she did have a hematoma right about the pubic bone following surgery and she is still a little tender in this area. She reports recently she began feeling like she was getting a UTI but has increased her water consumption and this has helped. Her chief complaint at this time is pelvic pressure and inability to run for exercise. Treatment Goals Patient/Caregiver Goals To eliminate pelvic pressure allowing her to be more active again PT-OP-C Subjective Start: 04/04/18 11:54 Freq: Status: Active Protocol: Document 05/23/18 17:44 [facility] (Rec: 05/23/18 17:45 [facility] [email or web address]) OP-PT Subjective Patient Comments Patient Comments Silvana reports she cut up a bunch of apples over the weekend and could really feel the pressure in her pelvic floor. She was sore for a few days in her anterior pelvis. PT-OP-F Manual Assessment Start: 03/11/18 07:26 Freq: Status: Active Protocol: Document 03/07/18 09:00 [facility] (Rec: 03/11/18 07:50 [facility] [email or web address]) Manual Assessments Soft Tissue Assessment Soft Tissue Mobility Assessment Myofascial tightness in the suprapubic fascia and over the bladder Joint Mobility Assessment Joint Mobility Assessment + ASLR test for SI instability on the right side PT-OP-I Pelvic Floor Start: 03/11/18 07:26 Freq: Status: Active Protocol: Document 03/07/18 09:00 [facility] (Rec: 03/11/18 07:50 [facility] [email or web address]) Pelvic Floor Assessment Urine Pelvic Floor Surgery hysterectomy Urinary Symptoms Prolapse Falling Out Feeling/Heavy Leakage Cause Cough Exercise Other Leakage Causes only with hard coughing or running Pelvic Clock Pelvic Clock 12-3 Atrophy Pelvic Clock 3-6 Atrophy Pelvic Clock 6-9 Atrophy Pelvic Clock 9-12 Atrophy Pelvic Clock Other Jacqeucarine is able to facilitate her pelvic floor but is weaker Left>Right illiococcygeus and has difficult with lateral wall recruitment Prolapse Cystocele Grade 2 Contraction Ability Manual Muscle Testing Left 2 Manual Muscle Testing Right 3 Manual Muscle Testing Anterior 3 Manual Muscle Testing Posterior 3 Muscle Endurance (Seconds) 4 PT-OP-M Strength Start: 03/11/18 07:26 Freq: Status: Active Protocol: Document 03/07/18 09:00 [facility] (Rec: 03/11/18 07:50 [facility] [email or web address]) Trunk Strength Trunk Manual Muscle Testing Core Stabilization Decreased ability to facilitate the transverse abdominal muscle and positive ASLR test on the right for left sided instability Hip Strength Hip Manual Muscle Testing Right Abduction 4 Good External Rotation 4 Good Left Abduction 3+ Fair+ External Rotation 3+ Fair+ PT-OP-Q Treatments Start: 03/11/18 07:26 Freq: Status: Active Protocol: Document 05/23/18 17:26 [facility] (Rec: 05/28/18 17:32 [facility] [email or web address]) Therapeutic Exercises Supine Exercises 6 Supine Exercise Name roll outs with theraband 4 Supine Exercise Name quick contractions 3 Supine Exercise Name ball squeeze with pelvic floor contractions 2 Supine Exercise Name pelvic floor long holds with EMG biofeedback 1 Supine Exercise Name TA brace with marches Other Exercises 4 Other Exercise Name cobra stretch for the anterior pelvic fascia 3 Other Exercise Name quadraped OA, OL OAL 2 Other Exercise Name foam roll stretch 1 Other Exercise Name iliopsoas stretch in a lunge position and half kneeling PT-OP-T Assessment and Plan Start: 03/11/18 07:26 Freq: Status: Active Protocol: Document 05/23/18 17:26 [facility] (Rec: 05/28/18 17:32 [facility] [email or web address]) Physical Therapy Assessment Progress Towards Goals Progress Towards Goals Progressing Toward Goals Assessment Summary Assessment Deidra has made good improvements with her strength of her pelvic floor. She has doubled her strength since she began therapy in March. We have worked on stretches to open up the right side of her pelvis where the hematoma was and she feels the stretching helps. She has done a little bit with running again. Deidra is still feeling pelvic pressure at times and especially after a day of working on her feet. She will continue her exercises and then follow up with Dr. Ling on possible bladder lift repair. Physical Therapy Plan Frequency and Duration Frequency of Treatment 1x/Week Duration of Treatment 8 weeks Plan of Care Start Date 05/09/18 Plan of Care End Date 06/27/18 Therapeutic Interventions Therapeutic Interventions Home Exercise Program Manual Therapy Neuromuscular Re-education Self-Care/Home Management Soft Tissue Mobilization Therapeutic Activities Modalities Biofeedback Discharge Physical Therapy Discharge Comments At this point Deidra is independent with her home program. She will continue to work on her strengthening and follow up with Dr. Ling
--- NOTE | 2018-10-02 10:56 | PT.OPDS ---
Current Diagnoses Other female genital prolapse (05/23/18) Provider Visit Care Team Role Provider Type Summer Conteh PA-C Family Provider Advanced Ornamental Painter Primary Care Provider Specialty: Medical Address: [facility] [place], [address] Email: [email or web address] Ling MD Attending Provider Physician Specialty: INJECTION MOLDING PROCESS TECHNICIAN Address: [address] [place] [address], [id number] Email: [email or web address] Visit Number Visit Number 7 Discharge Summary PT-OP-B Current Condition Start: 03/11/18 07:26 Freq: Status: Active Protocol: Document 03/07/18 09:00 [facility] (Rec: 03/11/18 07:50 [facility] [email or web address]) Current Condition History of Current Condition Onset Date symptoms began 6-7 years ago Current Complaints pelvic floor weakness, pelvic pressure and heaviness History of Current Condition Charmaine describes symptoms that began after her babies were born. She had 3 vaginal deliveries and followign these under went a umbilical hernia repair. 6-7 years ago she began feeling pelvic pressure symptoms and had to stop running. Fibroids were discovered and she elected to undergo a complete hysterectomy 11/26/17. Fracisco reports her surgery went well she did have a hematoma right about the pubic bone following surgery and she is still a little tender in this area. She reports recently she began feeling like she was getting a UTI but has increased her water consumption and this has helped. Her chief complaint at this time is pelvic pressure and inability to run for exercise. Treatment Goals Patient/Caregiver Goals To eliminate pelvic pressure allowing her to be more active again PT-OP-C Subjective Start: 04/04/18 11:54 Freq: Status: Active Protocol: Document 05/23/18 17:44 [facility] (Rec: 05/23/18 17:45 [facility] [email or web address]) OP-PT Subjective Patient Comments Patient Comments Silvana reports she cut up a bunch of apples over the weekend and could really feel the pressure in her pelvic floor. She was sore for a few days in her anterior pelvis. PT-OP-F Manual Assessment Start: 03/11/18 07:26 Freq: Status: Active Protocol: Document 03/07/18 09:00 [facility] (Rec: 03/11/18 07:50 [facility] [email or web address]) Manual Assessments Soft Tissue Assessment Soft Tissue Mobility Assessment Myofascial tightness in the suprapubic fascia and over the bladder Joint Mobility Assessment Joint Mobility Assessment + ASLR test for SI instability on the right side PT-OP-I Pelvic Floor Start: 03/11/18 07:26 Freq: Status: Active Protocol: Document 03/07/18 09:00 [facility] (Rec: 03/11/18 07:50 [facility] [email or web address]) Pelvic Floor Assessment Urine Pelvic Floor Surgery hysterectomy Urinary Symptoms Prolapse Falling Out Feeling/Heavy Leakage Cause Cough Exercise Other Leakage Causes only with hard coughing or running Pelvic Clock Pelvic Clock 12-3 Atrophy Pelvic Clock 3-6 Atrophy Pelvic Clock 6-9 Atrophy Pelvic Clock 9-12 Atrophy Pelvic Clock Other Vicki is able to facilitate her pelvic floor but is weaker Left>Right illiococcygeus and has difficult with lateral wall recruitment Prolapse Cystocele Grade 2 Contraction Ability Manual Muscle Testing Left 2 Manual Muscle Testing Right 3 Manual Muscle Testing Anterior 3 Manual Muscle Testing Posterior 3 Muscle Endurance (Seconds) 4 PT-OP-M Strength Start: 03/11/18 07:26 Freq: Status: Active Protocol: Document 03/07/18 09:00 [facility] (Rec: 03/11/18 07:50 [facility] [email or web address]) Trunk Strength Trunk Manual Muscle Testing Core Stabilization Decreased ability to facilitate the transverse abdominal muscle and positive ASLR test on the right for left sided instability Hip Strength Hip Manual Muscle Testing Right Abduction 4 Good External Rotation 4 Good Left Abduction 3+ Fair+ External Rotation 3+ Fair+ PT-OP-T Assessment and Plan Start: 03/11/18 07:26 Freq: Status: Active Protocol: Document 10/02/18 10:55 [facility] (Rec: 10/02/18 10:56 [facility] [email or web address]) Physical Therapy Assessment Assessment Summary Assessment Deidra has made good improvements with her strength of her pelvic floor. She has doubled her strength since she began therapy in March. We have worked on stretches to open up the right side of her pelvis where the hematoma was and she feels the stretching helps. She has done a little bit with running again. Deidra is still feeling pelvic pressure at times and especially after a day of working on her feet. She will continue her exercises and then follow up with Dr. Ling on possible bladder lift repair. Physical Therapy Plan Discharge Physical Therapy Discharge Comments At this point Deidra is independent with her home program. She will continue to work on her strengthening and follow up with Dr. Ling
--- NOTE | 2018-10-10 17:48 | PT.OPPOC ---
Deidra Bowman Female : 1965 [facility]# [id number] 05/09/18 11:56 - PT OP Progress Note by Mabel Hood, CHRISSIE Acct Num: [id number] : 1965 Patient Age: 53 Current Diagnoses Other female genital prolapse (05/09/18) Physical Therapy Progress Note PT-OP-A Visit Information Start: 03/11/18 07:26 Freq: Status: Active Protocol: Document 05/09/18 11:48 [facility] (Rec: 05/09/18 11:55 [facility] [email or web address]) Out-Patient Physical Therapy Visit Information Visit Information Visit Type Progress Note Visit Start Time 09:00 Visit Stop Time 09:45 Total Visit Minutes 45 Visit Number 5 Evaluation Information Evaluation Date 03/07/18 PT-OP-B Current Condition Start: 03/11/18 07:26 Freq: Status: Active Protocol: Document 03/07/18 09:00 [facility] (Rec: 03/11/18 07:50 [facility] [email or web address]) Current Condition History of Current Condition Onset Date symptoms began 6-7 years ago Current Complaints pelvic floor weakness, pelvic pressure and heaviness History of Current Condition Charmaine describes symptoms that began after her babies were born. She had 3 vaginal deliveries and followign these under went a umbilical hernia repair. 6-7 years ago she began feeling pelvic pressure symptoms and had to stop running. Fibroids were discovered and she elected to undergo a complete hysterectomy 11/26/17. Fracisco reports her surgery went well she did have a hematoma right about the pubic bone following surgery and she is still a little tender in this area. She reports recently she began feeling like she was getting a UTI but has increased her water consumption and this has helped. Her chief complaint at this time is pelvic pressure and inability to run for exercise. Treatment Goals Patient/Caregiver Goals To eliminate pelvic pressure allowing her to be more active again PT-OP-C Subjective Start: 04/04/18 11:54 Freq: Status: Active Protocol: Document 05/09/18 11:48 [facility] (Rec: 05/09/18 11:55 [facility] [email or web address]) OP-PT Subjective Patient Comments Patient Comments Silvana reports she is starting to be able to increase her activity and run a little. She suprised her self that she was able to run a bit and not feel the pressure. She does still feel some imflammation in her tissue on the right anterior pelvis where the hematoma was and by the end of her work day feels some pelvic pressure. SHe does note improvement PT-OP-F Manual Assessment Start: 03/11/18 07:26 Freq: Status: Active Protocol: Document 03/07/18 09:00 [facility] (Rec: 03/11/18 07:50 [facility] [email or web address]) Manual Assessments Soft Tissue Assessment Soft Tissue Mobility Assessment Myofascial tightness in the suprapubic fascia and over the bladder Joint Mobility Assessment Joint Mobility Assessment + ASLR test for SI instability on the right side PT-OP-I Pelvic Floor Start: 03/11/18 07:26 Freq: Status: Active Protocol: Document 03/07/18 09:00 [facility] (Rec: 03/11/18 07:50 [facility] [email or web address]) Pelvic Floor Assessment Urine Pelvic Floor Surgery hysterectomy Urinary Symptoms Prolapse Falling Out Feeling/Heavy Leakage Cause Cough Exercise Other Leakage Causes only with hard coughing or running Pelvic Clock Pelvic Clock 12-3 Atrophy Pelvic Clock 3-6 Atrophy Pelvic Clock 6-9 Atrophy Pelvic Clock 9-12 Atrophy Pelvic Clock Other Jacqeuline is able to facilitate her pelvic floor but is weaker Left>Right illiococcygeus and has difficult with lateral wall recruitment Prolapse Cystocele Grade 2 Contraction Ability Manual Muscle Testing Left 2 Manual Muscle Testing Right 3 Manual Muscle Testing Anterior 3 Manual Muscle Testing Posterior 3 Muscle Endurance (Seconds) 4 PT-OP-M Strength Start: 03/11/18 07:26 Freq: Status: Active Protocol: Document 03/07/18 09:00 [facility] (Rec: 03/11/18 07:50 [facility] [email or web address]) Trunk Strength Trunk Manual Muscle Testing Core Stabilization Decreased ability to facilitate the transverse abdominal muscle and positive ASLR test on the right for left sided instability Hip Strength Hip Manual Muscle Testing Right Abduction 4 Good External Rotation 4 Good Left Abduction 3+ Fair+ External Rotation 3+ Fair+ PT-OP-T Assessment and Plan Start: 03/11/18 07:26 Freq: Status: Active Protocol: Document 05/09/18 11:48 [facility] (Rec: 05/09/18 11:55 [facility] [email or web address]) Physical Therapy Assessment Progress Towards Goals Progress Towards Goals Progressing Toward Goals Assessment Summary Assessment Silvana has been seen for 6 visits in PT and is showing good overall progress with physical therapy. She is stronger in her pelvic floor and is noting she can tolerate a small amount of running now . She still feels some inflammation from where the hematoma was and we are working on improved tissue mobility in this region. She has been able to tolerate some dynamic stabilization exercises now as well. She would benefit from continued PT Physical Therapy Plan Frequency and Duration Frequency of Treatment 1x/Week Duration of Treatment 8 weeks Plan of Care Start Date 05/09/18 Plan of Care End Date 06/27/18 Therapeutic Interventions Therapeutic Interventions Home Exercise Program Manual Therapy Neuromuscular Re-education Self-Care/Home Management Soft Tissue Mobilization Therapeutic Activities Modalities Biofeedback Initialized on 05/09/18 11:56 - END OF NOTE Plan of Care Dates Plan of Care Start Date 05/09/18 Plan of Care End Date 06/27/18 Please Sign and Return: I have reviewed this Plan of Care and certify that the skilled therapy services above are required to meet the patient?s needs. Physician Signature Date Printed Name and Credentials Clinical Instructor Signature Printed Name and Credentials
== END 2018-11-18 07:50 | disposition home or self-care (01) ==
LOC: PHYS 09:00
PROVIDERS: Family Provider Physician Assistant; PCP Physician Assistant; Visit Provider Obstetrics & Gynecology
DX: N81.89 Other female genital prolapse (principal)
CPT/HCPCS: 97110; 97140; 97161

== ENCOUNTER → 2018-08-24 11:28 | Outpatient (CLI) | payer OTHER, SELFPAY ==
[2018-08-24 13:31] LABS: Add Manual Diff / Slide Review NO; Basophils Percent Auto 1.2 % (0-2); Eosinophils Percent Auto 2.1 % (2-4); Hematocrit 42.9 % (36-46); Hemoglobin 14.6 g/dL (12.0-16.0); Lymphocytes Percent Auto 30.3 % (25-40); Mean Corpuscular Hemoglobin 30.2 PG (26-34); Mean Corpuscular Volume 88.8 fL (80-100); Monocytes Percent Auto 9.5 % (3-14); Neutrophils Absolute Auto 2800 /uL (1500-7000); Neutrophils Percent Auto 56.9 % (50-75); Platelet Count 325 X10^3/uL (150-400); Red Blood Cell Count 4.83 X10^6/uL (4.0-5.2); Red Cell Distribution Width 12.9 % (11.6-14.8); White Blood Cell Count 4.9 X10^3/uL (4.5-11.0)
[2018-08-24 13:46] LABS: HEMOLYSIS < 15 (0-50); Iron 136 ug/dL (37-170)
[2018-08-24 13:48] LABS: Alanine Aminotransferase 30 IU/L (9-52); Albumin 4.8 g/dL (3.5-5.0); Albumin Globulin Ratio 1.7 (1.0-2.8); Alkaline Phosphatase 71 U/L (38-126); Aspartate Aminotransferase 24 IU/L (14-36); BUN Creatinine Ratio 26.3 (6-22); Bilirubin Total 0.7 mg/dL (0.2-1.3); Blood Urea Nitrogen 21 mg/dL (7-17); Calcium 9.9 mg/dL (8.4-10.2); Carbon Dioxide 28 mmol/L (22-32); Chloride 100 mmol/L (98-107); Cholesterol 233 mg/dL (140-199); Estimated Glomerular Filt Rate > 60.0 mL/min (>60); Globulin 2.8 g/dL (1.7-4.1); Glucose 84 mg/dL (70-100); HDL Cholesterol 95 mg/dL (40-60); HEMOLYSIS < 15 (0-50); LDL Cholesterol Calculated 125 mg/dL (<100); Potassium 4.3 mmol/L (3.4-5.1); Sodium 139 mmol/L (137-145); Total Protein 7.6 g/dL (6.3-8.2); Triglycerides 66 mg/dL (35-150)
[2018-08-24 13:57] LABS: Percent Iron Saturation 42 % (15-50); Total Iron Binding Capacity 325 ug/dL (265-497); Transferrin 286 mg/dL (206-381)
[2018-08-24 14:19] LABS: Thyroid Stimulating Hormone 1.32 uIU/mL (0.47-4.68)
[2018-08-24 14:23] LABS: Ferritin 16.2 ng/mL (11.1-264)
== END ==
PROVIDERS: Family Provider Physician Assistant; PCP Physician Assistant; Visit Provider Physician Assistant
DX: D50.9 Iron deficiency anemia, unspecified (principal); R01.1 Cardiac murmur, unspecified
CPT/HCPCS: 36415; 80053; 80061; 82728; 83540; 83550; 84443; 85025

== ENCOUNTER → 2018-08-30 12:51 | Outpatient (CLI) | payer OTHER, SELFPAY ==
--- NOTE | 2018-08-30 12:52 | DI.ECHO.S_ITS ---
[facility] +---------+ : : [address] : [place] : : : : [id number] : : : : Phone: [phone]+ Echocardiogram Report + + :Name: TONI JOE Study Date: 08/30/2018 Height: 65 in : :[facility] Exam Location: [facility] Weight: 123 lb : : Gender: Female BSA: 1.6 m2 : :: 1965 Age: 53 yrs BP: 118/95 mmHg: :Reason For Study: Murmur/ Family history of aneurysm : :Ordering Physician: MIRIAM : :Summer Conteh Performed By: Lizzy Page : + + Interpretation Summary The left ventricle is normal in size, wall thickness, and systolic function without any focal wall motion abnormalities with the ejection fraction visually estimated to be 65-70%. Diastolic parameters suggest probable normal left ventricular diastolic function and normal filling pressures. The right ventricle is normal in size and function. Pulmonary artery pressures cannot be estimated because of the lack of a measurable TR jet velocity but the IVC suggests a CVP of around 3 mmHg. Both atria are normal in size. There is no significant valvular heart disease. The aortic root is borderline dilated. Procedure: A two-dimensional transthoracic echocardiogram with color flow and Doppler was performed. The study quality was technically adequate. The apical views are suboptimal in quality due to breast implants. There is no prior echocardiogram noted for this patient. The patient was in normal sinus rhythm during the exam. Left Ventricle: The left ventricle is normal in size, wall thickness, and systolic function without any focal wall motion abnormalities. The ejection fraction is estimated to be 65-70%. Diastolic parameters suggest probable normal left ventricular diastolic function and normal filling pressures. Right Ventricle: The right ventricle is normal in size and function. Atria: Both atria are normal in size. There is no Doppler evidence for an interatrial shunt. Mitral Valve: The mitral valve is normal in structure and function. There is trace mitral regurgitation. Aortic Valve: The aortic valve is trileaflet. The aortic valve opens well. No aortic regurgitation is present. Tricuspid Valve: The tricuspid valve is normal in structure and function. There is trace tricuspid regurgitation. Pulmonary artery pressures cannot be estimated because of the lack of a measurable TR jet velocity but the IVC suggests a CVP of around 3 mmHg. Pulmonic Valve: The pulmonic valve is not well visualized. There is trace pulmonic regurgitation. There is no significant valvular heart disease. Great Vessels: The aortic root is borderline dilated. The aortic arch is normal in size. The pulmonary artery is not well visualized, but is probably normal size. The IVC is of normal diameter and collapses greater than 50% with a sniff. This suggests a low right atrial pressure of 3 mm Hg. Pericardium/ Pleura There is no pericardial effusion. There is no pleural effusion. MMode/2D Measurements & Calculations LVIDd: 4.3 cm LVOT diam: 2.0 cm LVIDs: 1.6 cm Ao root diam: 3.6 cm FS: 61.7 % Ao Arch Diam (Prox Trans): 2.4 cm EPSS: 0.12 cm IVSd: 0.82 cm LVPWd: 0.73 cm LV aparicio. diameter/BSA (cm/m^2): 2.7 LV sys. diameter/BSA (cm/m^2): 1.0 LA A2 area: 14.4 cm2 RA long axis: 4.3 cm LA A4 area: 12.1 cm2 RA area: 14.7 cm2 LA length (vol): 4.1 cm RA vol: 42.1 ml LA vol: 36.1 ml RA : 26.2 ml/m2 LA vol index: 22.5 ml/m2 RVD1 (basal): 3.5 cm Doppler Measurements & Calculations Ao V2 max: 113.3 cm/sec LVOT Max Dylan: 96.0 cm/sec Ao V2 mean: 82.9 cm/sec LV V1 max P.7 mmHg Ao max P.1 mmHg LV V1 VTI: 20.3 cm Ao mean P.0 mmHg FRANKLYN(I,D): 2.5 cm2 Ao V2 VTI: 23.9 cm FRANKLYN(V,D): 2.5 cm2 sev ratio: 0.85 FRANKLYN indexed to BSA (cm^2/m^2): 1.6 MV E max dylan: 79.5 cm/sec TR max dylan: 203.2 cm/sec MV A max dylan: 72.1 cm/sec TR max P.5 mmHg MV E/A: 1.1 PA V2 max: 91.4 cm/sec Med Peak E' Dylan: 6.5 cm/sec PA V2 mean: 61.5 cm/sec E/E' med: 12.2 PA mean P.8 mmHg Lat Peak E' Dylan: 9.6 cm/sec PA Accel Time: 0.16 sec E/E' lat: 8.3 E/e' average: 10.3 MV dec time: 0.19 sec MV P1/2t: 59.3 msec MV /2t max dylan: 81.0 cm/sec SV(LVOT): 60.6 ml MVA(2t): 3.7 cm2 Reading Physician:PRESLEY
== END ==
PROVIDERS: Family Provider Physician Assistant; PCP Physician Assistant; Visit Provider Physician Assistant
DX: R01.1 Cardiac murmur, unspecified (principal); Z84.89 Family history of other specified conditions
CPT/HCPCS: 93306

== ENCOUNTER → 2018-10-22 17:54 | Outpatient (CLI) | payer OTHER, SELFPAY ==
--- NOTE | 2018-10-22 17:58 | DI.RAD.S_ITS ---
PROCEDURE: XR HAND LT MIN 3V INDICATIONS: R/O Fx or dislocation of L ring middle fingers TECHNIQUE: 3 views of the hand(s) acquired. COMPARISON: None. FINDINGS: Bones: No fractures or dislocations. Carpal bones are normally aligned. No suspicious bony lesions. Soft tissues: No suspicious soft tissue calcifications. IMPRESSION: No trauma found. Dictated by: Ganesh Ji M.D. on 10/23/2018 at 8:27 Approved by: Ganesh Ji M.D. on 10/23/2018 at 8:28
== END ==
PROVIDERS: Family Provider Physician Assistant; PCP Physician Assistant; Visit Provider Physician Assistant
DX: M79.645 Pain in left finger(s) (principal)
CPT/HCPCS: 73130

== ENCOUNTER 2019-09-08 14:02 | Emergency (ER) | payer OTHER, SELFPAY ==
[2019-09-08 14:07] VITALS: BP 174/102; PULSE 92; RESP 18; TEMP 37.8; O2SAT 98
--- NOTE | 2019-09-08 14:37 | PC.NURSE ---
took a hydrocodone she had from previous surgery for pain. A 1/4 of alprazolam last night.
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
[2019-09-08] MEDS: diazePAM 5 MG TABLET 10 MG PO (15:38)
[2019-09-08] MEDS: KETOROLAC 60 MG/2 ML VIAL 30 MG IM (15:38)
[2019-09-08 16:45] VITALS: BP 162/80; PULSE 91; RESP 16; O2SAT 98
== END 2019-09-08 16:45 | disposition home or self-care (01) ==
PROVIDERS: Emergency Provider Emergency Medicine; Family Provider Physician Assistant; PCP Physician Assistant
DX: M54.5 Low back pain (principal)
CPT/HCPCS: 81003; 96372; 99283; J1885

== ENCOUNTER → 2019-09-19 10:02 | Outpatient (CLI) | payer OTHER, SELFPAY ==
[2019-09-19 12:31] LABS: Add Manual Diff / Slide Review NO; Basophils Absolute Auto 100 /uL (0-100); Basophils Percent Auto 1.4 % (0-2); Eosinophils Absolute Auto 100 /uL (0-450); Eosinophils Percent Auto 1.9 % (2-4); Hematocrit 43.1 % (36-46); Hemoglobin 14.8 g/dL (12.0-16.0); Lymphocytes Absolute Auto 1600 /uL (1100-4500); Lymphocytes Percent Auto 27.1 % (25-40); Mean Corpuscular HGB Conc 34.3 % (30-36); Mean Corpuscular Hemoglobin 30.3 PG (26-34); Mean Corpuscular Volume 88.4 fL (80-100); Monocytes Absolute Auto 600 /uL (0-900); Monocytes Percent Auto 9.4 % (3-14); Neutrophils Absolute Auto 3500 /uL (1500-7000); Neutrophils Percent Auto 60.2 % (50-75); Platelet Count 385 X10^3/uL (150-400); Red Blood Cell Count 4.87 X10^6/uL (4.0-5.2); Red Cell Distribution Width 12.7 % (11.6-14.8); White Blood Cell Count 5.9 X10^3/uL (4.5-11.0)
[2019-09-19 13:37] LABS: Alanine Aminotransferase 17 IU/L (<35); Albumin 4.9 g/dL (3.5-5.0); Albumin Globulin Ratio 1.6 (1.0-2.8); Alkaline Phosphatase 90 U/L (38-126); Aspartate Aminotransferase 27 IU/L (14-36); BUN Creatinine Ratio 26.3 (6-22); Bilirubin Total 0.7 mg/dL (0.2-1.3); Blood Urea Nitrogen 21 mg/dL (7-17); Carbon Dioxide 26 mmol/L (22-32); Chloride 100 mmol/L (98-107); Cholesterol 219 mg/dL (140-199); Estimated Glomerular Filt Rate > 60.0 mL/min (>60); Glucose 89 mg/dL (70-100); HDL Cholesterol 81 mg/dL (40-60); HEMOLYSIS < 15 (0-50); LDL Cholesterol Calculated 124 mg/dL (<100); Potassium 5.3 mmol/L (3.4-5.1); Sodium 139 mmol/L (137-145); Total Protein 7.9 g/dL (6.3-8.2); Triglycerides 72 mg/dL (35-150)
[2019-09-19 13:52] LABS: Thyroid Stimulating Hormone 1.18 uIU/mL (0.47-4.68)
[2019-09-22 13:11] LABS: Fecal Immunochemical Test NOT DETECTED (NOT DETECTED)
== END ==
PROVIDERS: Family Provider Physician Assistant; PCP Physician Assistant; Visit Provider Physician Assistant
DX: Z00.00 Encounter for general adult medical examination without abnormal findings (principal); Z13.220 Encounter for screening for lipoid disorders; Z13.6 Encounter for screening for cardiovascular disorders; Z12.11 Encounter for screening for malignant neoplasm of colon
CPT/HCPCS: 36415; 80053; 80061; 82274; 84443; 85025

== ENCOUNTER → 2020-06-11 09:41 | Outpatient (CLI) | payer OTHER, SELFPAY ==
--- NOTE | 2020-06-11 10:18 | DI.CT.S_ITS ---
Diagnostic Imaging [address] [place] [id number] PHONE: [phone] PATIENT NAME: TONI JOE : 1965 EXAM DATE: 06/11/2020 10:[address] SONIA BARBA M.D. CC: MODALITY: US PATIENT TYPE: Out CONTRAST MEDIA: STATION ID: [id number] FLUORO TIME: This report includes an Addendum and supersedes previous reports for this exam. PROCEDURE: US ABDOMEN LIMITED INDICATIONS: right lower back mass, rule out lipoma, bursa, sarcoma TECHNIQUE: Real-time focused scanning was performed of the abdomen, with image documentation. COMPARISON: None. FINDINGS: Scanning over the area of current clinical concern as directed by the patient reveals a ovoid 1.2 cm maximal dimension subtle structure in the subcutaneous fat. Additional orthogonal measurements yield dimensions of 1.1 x 0.5 cm. This structure has a sonographic appearance most likely representing lipoma. IMPRESSION: Presumed lipoma measuring 1.2 x 1.1 x 0.5 cm exactly in the area of current clinical concern. Continue close clinical follow-up is recommended and if clinical concerns increase contrast-enhanced MR scanning would be recommended. Dictated by: Ganesh Ji M.D. on 06/11/2020 at 10:40 Approved by: Ganesh Ji M.D. on 06/11/2020 at 10:43 ADDENDUM: The original dictation, above, was lost temporarily electronically. It should now be available for review. Dictated by: Ganesh Ji M.D. on 06/14/2020 at 10:45 Approved by: Ganesh Ji M.D. on 06/14/2020 at 10:46
== END ==
PROVIDERS: Family Provider Physician Assistant; PCP Physician Assistant; Referring Provider Surgery; Visit Provider Surgery
DX: R22.2 Localized swelling, mass and lump, trunk (principal)
CPT/HCPCS: 76705

== ENCOUNTER → 2022-03-21 16:32 | Outpatient (CLI) | payer OTHER, SELFPAY ==
--- NOTE | 2022-03-21 | DI.MG.S_ITS ---
BILATERAL DIGITAL SCREENING MAMMOGRAM 3D/2D WITH CAD WITH AUGMENTATION: 03/21/2022 CLINICAL: Routine screening. Comparison is made to exam dated: 10/17/2017 mammogram - [facility]. The tissue of both breasts is extremely dense, which lowers the sensitivity of mammography. Current study was also evaluated with a Computer Aided Detection (CAD) system. Bilateral breast implants are stable. No significant masses, calcifications, or other findings are seen in either breast. There has been no significant interval change. IMPRESSION: NEGATIVE There is no mammographic evidence of malignancy. A 1 year screening mammogram is recommended. Based on the Tyrer Cuzick model (a risk assessment model) the patient's lifetime risk is 11.1% and her 10 year risk is 3.6%. According to the ACR, ACS, and NCCN guidelines, an annual breast MRI exam along with mammogram is recommended if the patient's lifetime risk is 20% or greater. This exam was interpreted at Station ID: [id number]. NOTE: For mammograms, a report in lay terms will be sent to the patient. Approximately 15% of breast malignancies will not be visualized mammographically. In the management of a palpable breast mass, a negative mammogram must not discourage biopsy of a clinically suspicious lesion. Electronically Signed By: Orlando sanz/zuleyma:03/22/2022 08:09:38 letter sent: Normal Exam ACR BI-RADS Category 1: Negative 3341F
== END ==
PROVIDERS: Family Provider Physician Assistant; PCP Physician Assistant; Referring Provider Physician Assistant; Visit Provider Physician Assistant
DX: Z12.31 Encounter for screening mammogram for malignant neoplasm of breast (principal)
CPT/HCPCS: 77063; 77067

== ENCOUNTER 2023-05-09 12:29 | Day surgery (SDC) | payer OTHER, SELFPAY ==
[2023-05-02 16:33] VITALS: BMI 19.3
[2023-05-09] VITALS (13 sets, daily range): BP systolic 136–178; BP diastolic 77–114; PULSE 75–110; RESP 10–22; TEMP 35.9–36.8; O2SAT 96–100; BMI 19.3
[2023-05-09] MEDS: LACTATED RINGERS 1,000 ML 42 ML IV ×2 (12:44→15:30)
--- NOTE | 2023-05-09 13:54 | PM.PREOP ---
Pre-operative Note Interval Note History & Physical reviewed/Exam performed by Physician: Yes Changes to H&P: No H&P completed within 30 days and has changed as indicated here:: 04/24/23
[2023-05-09] MEDS: CEFAZOLIN 2 GM/100 ML PREMIX 100 ML IV (14:40)
--- NOTE | 2023-05-09 15:02 | SUR.OPER ---
Lithotomy on padded OR bed, head on pillow, arms secured on padded arm boards at <90 degrees abduction. Legs secured in padded yellow fins stirrups.
[2023-05-09] MEDS: BUPIVACAINE 0.25% (PF) 30 ML, EPINEPHrine 0.15 MG INJ (15:05)
--- NOTE | 2023-05-09 16:17 | PM.GYNOP.1 ---
Operative Date/Time/Diagnoses Date of procedure: 05/09/23 Time of procedure: 16:18 Pre-op diagnosis: Symptomatic cystocele and rectocele Cervical prolapse Post-op diagnosis: same Procedure & Clinicians Procedure: Procedures Operation Date: 05/09/23 14:00 Actual Procedure Side Surgeon p Anterior/Posterior Repair, sacrospinous ligament fixation Lucy Ling MD Indications: 58-year-old 3 para with symptomatic cystocele, rectocele, and cervical prolapse. She is here for definitive surgical management. Surgeon: Lucy Ling Clinical Data Management Manager: Judy Weber Anesthesia Type: General and Local Operative Notes Findings: Third-degree cystocele Third-degree rectocele Second to third-degree cervical prolapse Closure Type: primary Specimen(s): none Applied: catheter (To continuous drainage) and other (Vaginal packing in place) Estimated blood loss (mL): 100 Blood products transfused: none Procedure in detail: The patient was taken to the operating room where she was placed in the dorsal supine position. After adequate general endotracheal anesthesia was achieved, she was placed in the dorsal lithotomy position, and prepped and draped in the usual sterile fashion. A time-out was performed. A weighted speculum was placed into the vagina. 2 Allis clamps were placed at the apex of the cystocele. 6 mL of quarter percent Marcaine with epinephrine were injected and an incision was made with a #10 blade between the 2 Allis clamps. Wide Allis clamps were placed on the midline of the cystocele approximately 5. 6 cc of 0.25% Marcaine with epinephrine were injected submucosally on either side of the midline. The mucosa was undermined using the Metzenbaum scissors and the mucosa incised in the midline moving the wide Allis clamps to the edges of the mucosa. The mucosa was dissected off the underlying fascia using an open moistened Ray-Robert and a #10 blade. The fascia was reapproximated with 0 Vicryl with a series of horizontal mattress sutures. The excess vaginal mucosa was excised. The mucosa was closed using simple interrupted sutures with 2-0 Vicryl including the underlying fascia to close the space. The weighted speculum was removed from the vagina. Allis clamps were placed at the mucocutaneous junction at the introitus. 6 mL of cord percent Marcaine with epinephrine were injected. An incision was made with a #10 blade between the 2 Allis clamps, and a triangular piece of skin and underlying subcutaneous tissue was removed. Allis clamps were placed in the midline of the rectocele. 10 mL of cord percent Marcaine with epinephrine were injected submucosally on either side of the midline. The mucosa was undermined using the Metzenbaum scissors and the mucosa incised in the midline, moving the wide Allis clamps to the mucosal edges. The underlying fascia was dissected off of the mucosa using an open moistened Ray-Robert and a #10 blade. The fascia was reapproximated using 0 Vicryl with a series of horizontal mattress sutures. The first few stitches were placed. The right sacral spinous ligament was then located and bluntly the adventitia was dissected away from the sacral spinous ligament. Using the Capio needle with 2-0 Prolene, proximally 2 cm from the ischial spine, a bite was taken with the suture and Capio needle into the sacral spinous ligament. The other end of the needle was then used to take a bite out of the right side of the cervix. This was tagged with a hemostat The excess vaginal mucosa was excised. The mucosa was closed using a series of simple interrupted sutures with 2-0 Vicryl including the underlying fascia to close the space. The first few stitches were placed and then tagged with a hemostat. The sacral spinous ligament stitch was then tied down. The cervix was nicely elevated. The remainder of the fascial sutures were placed. The remainder of the mucosal stitches were placed including the underlying fascia. On the perineum 0 Vicryl was used to reapproximate the levator muscle. The subcutaneous layer was closed with 2-0 Vicryl. The skin was closed with 3-0 chromic in a subcuticular fashion. Hemostasis was achieved. A Betadine moistened vaginal pack was placed into the vagina. A rectal exam was done and there were no sutures palpable in the rectum. The urine was clear. Sponge, lap, and instrument counts were correct x-2. The patient tolerated the procedure well, was taken to PACU in stable condition. Complications: none Post-operative Condition: stable Disposition: PACU Plan for aftercare: To Acute Care after Recovery
[2023-05-09] MEDS: ONDANSETRON 4 MG/2 ML INJ IV (16:29)
[2023-05-09] MEDS: HYDROMORPHONE 1 MG INJ IV ×2 (16:29→16:37)
[2023-05-09] MEDS: fentaNYL 100 MCG/2 ML INJ IV (16:50)
[2023-05-09] MEDS: hydrOXYzine 50 MG/ML INJ 25 MG IM (17:01)
[2023-05-09] MEDS: OXYCODONE/ACETAMINOPHEN 5/325 TABLET 1 TAB PO (17:19)
[2023-05-09] MEDS: ALPRAZolam 0.25 MG TABLET 0.5 MG PO (18:07)
[2023-05-09] MEDS: LACTATED RINGERS 1,000 ML 100 ML IV (18:08)
[2023-05-09] MEDS: KETOROLAC 30 MG/ML VIAL IV ×2 (18:08→23:58)
--- NOTE | 2023-05-09 18:52 | PC.NURSE ---
Pt arrived from PACU at 1748. A&Ox4, hypertensive, c/o 7/10 pain to perineum, and anxiety. Lungs CTA, bowel sounds hypoactive, CMS intact bilaterally. Medications administered for anxiety and pain, IV fluids as ordered. Ice provided for perineum. SCDs on, bed in low position, call light within reach.
[2023-05-09] MEDS: TRAMADOL 50 MG TABLET PO (19:28)
[2023-05-09] MEDS: ACETAMINOPHEN 325 MG TABLET 650 MG PO (20:50)
[2023-05-09] MEDS: DOCUSATE 100 MG CAPSULE 200 MG PO (20:50)
[2023-05-10 00:40] VITALS: BP 121/82; PULSE 74; RESP 20; TEMP 36.4; O2SAT 96
[2023-05-10] MEDS: TRAMADOL 50 MG TABLET PO ×2 (01:04→08:38)
[2023-05-10] MEDS: LACTATED RINGERS 1,000 ML 100 ML IV (03:35)
[2023-05-10 04:00] VITALS: BP 124/77; PULSE 78; RESP 20; TEMP 36.5; O2SAT 97
[2023-05-10] MEDS: ACETAMINOPHEN 325 MG TABLET 650 MG PO ×2 (04:14→08:39)
[2023-05-10] MEDS: KETOROLAC 30 MG/ML VIAL IV ×2 (06:00→10:46)
[2023-05-10 06:32] LABS: Add Manual Diff / Slide Review NO; Basophils Absolute Auto 0 /uL (0-100); Basophils Percent Auto 0.2 % (0-2); Eosinophils Absolute Auto 0 /uL (0-450); Hematocrit 36.7 % (36-46); Hemoglobin 12.7 g/dL (12.0-16.0); Lymphocytes Absolute Auto 800 /uL (1100-4500); Lymphocytes Percent Auto 8.6 % (25-40); Mean Corpuscular HGB Conc 34.6 % (30-36); Mean Corpuscular Hemoglobin 30.3 PG (26-34); Mean Corpuscular Volume 87.5 fL (80-100); Monocytes Absolute Auto 800 /uL (0-900); Neutrophils Absolute Auto 8200 /uL (1500-7000); Neutrophils Percent Auto 83.2 % (50-75); Platelet Count 262 X10^3/uL (150-400); Red Cell Distribution Width 12.6 % (11.6-14.8); White Blood Cell Count 9.8 X10^3/uL (4.5-11.0)
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
[2023-05-10 08:32] VITALS: BP 128/89; PULSE 72; RESP 18; O2SAT 97
[2023-05-10] MEDS: DOCUSATE 100 MG CAPSULE 200 MG PO (08:38)
[2023-05-10] MEDS: ALPRAZolam 0.25 MG TABLET 0.5 MG PO (08:39)
[2023-05-10] MEDS: SODIUM CHLORIDE 0.9% FLUSH 10 ML IV (08:40)
[2023-05-10 09:37] VITALS: BP 128/89; PULSE 63; RESP 16; TEMP 36.7; O2SAT 99
--- NOTE | 2023-05-10 12:00 | CM.DANOTE ---
Patient is a 58 yo female who was admitted on 05/09/23 for Cystocele/Prolapse. Pt has [employer] for insurance and her PCP is Minerva Olsen. EMR was reviewed. Per OBGYN, pt tolerated procedure well and monroy cath discontinued this morning and once pt voids independently can discharge home with outpt f/u and no further identified discharge planning needs. Per RN, pt was somewhat anxious last night but better this morning and has ambulated the halls SBA and no further concerns at this time. Patient lives in [place] with her spouse and is independent with ADLs at baseline and does not use DME and works at a local [employer]. Pt also has local supportive Dtr. Pt plans to d/c via family POV and no further needs at this time. Pt does not have any hx of hospital admissions prior. Plan: SW to follow for plan of discharge home with family today once she voids independently and no further SW needs at this time. MIREYA Galloway Discharge Planning/Care Management CM Discharge Assessment Start: 05/10/23 11:59 Freq: Status: Active Protocol: Document 05/10/23 11:59 BF (Rec: 05/10/23 12:00 BF [id number]) Discharge Planning Assessment Assigned Pc Analyst MIREYA Rodriges DPOA/Assigned Designee Name informally spouse Miguel Contact Information [phone] Advance Directives? No Advance Directives on File No History Provided By Patient,Medical Record Has Patient been admitted in last 30 No days? Prior Living Arrangements House Household Members spouse,family Type of transporation used prior to Drives own vehicle admit Independent with ADL's Yes Is patient alert and oriented? Yes Caregiver for Another No Barriers to Discharge No Discharge Plan Home Transportation Arrangement Spouse to transport at d/c Referrals Initiated None needed Whiteboard Updated in Patient Room with Yes name and ext. # of Pc Analyst Review Status In Process Please Provide Date Initial DC 05/10/23 Assessment Was Performed Next Review Type Continued Stay Review Pre-Anesthesia Assessment Start: 05/02/23 10:53 Freq: Status: Complete Protocol: Document 05/02/23 16:33 AK (Rec: 05/02/23 16:51 AK [id number]) Pre-Anesthesia Assessment Preferred Name Silvana Patient Information Reviewed Via Phone Assessment Assessment Completed With Patient H&P Completed Within 30 Days No: incomplete Primary Care Provider Minerva Olsen Seen Specialist in Last 12 Months Yes Specialist Seen Hearing Therapy Director Preferred Language Vietnamese Height 165.1 cm Weight 52.617 kg Body Mass Index (BMI) 19.3 Hearing Ability Normal Visual Impairment No Limitations Visual Assist None Dentition Type Teeth, Natural Present Barriers to Learning None Hx Anesthesia Reactions Yes: mild memory issues for weeks Hx Family Anesthesia Reaction Yes: Sisters-n/v Hx Malignant Hyperthermia No Hx Blood Transfusions No Hx Blood Transfusion Reaction No Anesthesia Review Requested No Secretary No alcohol intake current alcohol intake frequency 0-2 drinks per day Smoking Status Never smoker Substance Use Type does not use History of Falling (Recent or History of No ) Patient is completely paralyzed or No completely immobile Ambulatory Aid None/bed rest/nurse assist Gait/Transferring Normal/bedrest/immobile Mental Status Oriented to own ability Is patient on oxygen? No Does patient have COTA/SOB No Hx Sleep Apnea No Currently Taking a Beta Babs No Can You Climb a Flight of Stairs Without Yes SOB Hx Chest Pain No Hx SOB No Hx Syncope or Dizziness No Anti-Coagulant Therapy No Has a Twine Winder No Hx Pacemaker/ICD No Pacemaker Rep Required? No Diet Type At Home Regular,Other Dysphagia No Comment MSG intolerance Urinary Catheter Present No Hx Urinary Self Catheterization No Diabetes No Patient No Lactating No Hx Drug Resistant Organism No Presence of External or Internal Medical No Devices Have you had any close contact with No someone diagnosed with COVID-19? Are you experiencing any of these No symptoms symptoms? Received a COVID vaccine? No Marital Status Lives With spouse,family Support System Spouse Does the Patient Have Assistance After Yes Surgery Patient Discharge Plan Description Return Home Feels Safe in Current Environment Yes Been Physically Hurt or Threatened By a No Person in Current Environment Do you have thoughts of harming yourself None or others? Are you currently considering suicide? No Do you have a plan to hurt yourself or No Plan others? Do You Have Any Spiritual Beliefs That No May Affect Your HC Choices? Do You Have Any Cultural Practices That No May Affect Your HC Choices? Who Can We Speak to About Patient's Care Miguel Bowman Identifying Code for Release of Patient declined Information Health Care Proxy/Next of Kin Miguel Bowman Health Care Proxy Emergency Contact Name Miguel Bowman Emergency Contact Advance Directives? No PAC Instructions Assistance for 24 hours post- op,Do not shave/clip surgical site,Medications to take/avoid ,No ETOH/petroleum product on skin DOS,NPO,Post-op transportation,Pre-surgical wash,Sturdy shoes/comfortable clothes,Do not bring valuables and remove jewelry
--- NOTE | 2023-05-12 10:46 | PM.DS.1 ---
History of Present Illness History of Present Illness Date Patient Seen: 05/03/23 Time Patient Seen: 09:30 Chief complaint: Pelvic *OPB* Narrative: Patient is a 58-year-old 3 para 3 who underwent an anterior and posterior repair as well as sacral spinous ligament fixation without complication on May 09, 2023. On postop day # 1, at 6:00 a.m. the Dillard catheter and vaginal packing were removed. The patient's bladder was allowed to fill naturally. With urge to void, she spontaneously voided 450 cc of clear yellow urine. She had a postvoid residual of 240 cc. 20 minutes later she voided 200 cc of clear yellow urine. Her pain was well controlled. No nausea or vomiting. She was ambulating independently. She was tolerating a diet. Discharge Providers Provider Discharge Date: 05/10/23 Primary care physician: Minerva Olsen PA-C Discharge provider: Lucy Ling MD Summary Hospital Course Discharge Diagnosis: Symptomatic cystocele and rectocele Symptomatic cervical prolapse Hospital Course: Patient is a 58-year-old 3 para 3 who underwent an anterior and posterior repair as well as sacral spinous ligament fixation without complication on May 09, 2023. On postop day # 1, at 6:00 a.m. the Dillard catheter and vaginal packing were removed. The patient's bladder was allowed to fill naturally. With urge to void, she spontaneously voided 450 cc of clear yellow urine. She had a postvoid residual of 240 cc. 20 minutes later she voided 200 cc of clear yellow urine. Her pain was well controlled. No nausea or vomiting. She was ambulating independently. She was tolerating a diet. Status at Discharge Cognitive/behavioral status at discharge: oriented Functional status at discharge: independent ambulation Overall status at discharge: patient is progressing back to baseline Time Spent with Patient Time spent: Less than 30 minutes Exam Vital Signs (past 8 hours): Oxygen Delivery Method Room Air Oxygen Flow Rate 0 Narrative Exam Narrative: Generally: Patient walking around in room, no acute distress Lungs: Clear to auscultation bilaterally Cardiovascular: Regular rate and rhythm Perineum: No bruising. Extremities: No edema, negative Homans Objective Labs 05/10/23 06:20 [facility] Surgical History Status post bilateral salpingo-oophorectomy (BSO) (11/26/17) Status post laparoscopic supracervical hysterectomy (11/26/17) Social History marital status: household members: spouse and family occupational status: employed Smoking Status: Never smoker second hand exposure: Yes (when I was a kid my dad smoked, but I got him to quit.) alcohol intake: current substance use type: does not use Discharge Assessment & Plan Assessment and Plan Assessment: 58-year-old 3 para 3 postop day # 1 status post anterior/posterior repair and sacral spinous ligament fixation Doing very well No urinary retention Plan of Treatment: Discharge to home Follow-up 2 weeks Discharge Plan Discharge Plan Patient Disposition: Home Provider Discharge Comment: Call with fever, chills, or bleeding vaginally more than spotting to light Stool softeners until bowel returns to normal Ibuprofen 600 mg every 6 hours as needed Tylenol 650 mg every 6 hours as needed Empty bladder every 3 hours. Set an alarm to get up once at night for the first few days. Discharge orders & Medications Discharge Orders: Discharge (Order); Ordered 05/10/23 Ordered By: Lucy Ling Prescriptions: New hydrocodone-acetaminophen 5-325 mg tablet 1 tab PO Q4-6H PRN (Reason: pain) Qty: 20 0RF ondansetron 4 mg tablet,disintegrating 4 mg PO Q6H PRN (Reason: nausea and vomiting) Qty: 14 0RF Continued alprazolam 1 mg tablet 0.5 mg PO QDAY PRN (Reason: anxiety) Discontinued estradiol [Yuvafem] 10 mcg tablet 10 mcg vaginal 2XW Rx Instructions: Use 1 tab in the vagina every day for 10 days and then twice weekly thereafter Follow up/Referrals: Lucy Ling MD [Physician] - As previously scheduled (Patient has a 2 and 6 week postop appointment already made) Minerva Olsen PA-C [Primary Care Provider] - Diet/Activity/Treatments Diet: Regular Activity: No heavy lifting, nothing more than a gal of milk for 6 weeks Nothing in the vagina Skin/Wound/Dressing Care Report to your healthcare provider any signs of infection, such as:: chills, fever, increased pain and unusual drainage Visit Report/Discharge Packet Instructions: DI for Cystocele and Rectocele Repair, DI for Prescription Opioid Use Stand Alone Forms: Patient Portal/API, Surgery Discharge Discharge Data Primary Care Provider: Minerva Olsen Attending Provider: Lucy Ling
== END 2023-05-10 13:21 | disposition home or self-care (01) ==
LOC: OR 12:31 → AC 12:32
PROVIDERS: PCP Physician Assistant; Referring Provider Obstetrics & Gynecology; Visit Provider Obstetrics & Gynecology
PROC: (CPT 57282; principal; 2023-05-09 14:00)
DX: N81.10 Cystocele, unspecified (principal); N81.6 Rectocele
CPT/HCPCS: 57282; 57260; 36415; 85025; J0171; J0690; J1100; J1170; J1885; J2405; J2704; J3010; J3410

== ENCOUNTER → 2024-01-31 16:19 | Outpatient (CLI) | payer OTHER, SELFPAY ==
[2023-05-09 18:30] VITALS: BMI 19.3
--- NOTE | 2024-01-31 16:21 | DI.ECHO.S_ITS ---
[facility] : : [id number] [place] : : [id number] : : Phone: [phone] Echocardiogram Report + + :Name: TONI JOE Study Date: 01/31/2024 Height: 65 in : :[facility] ReadingLocation: Weight: 122 lb: : Gender: Female BSA: 1.6 m2 : :: 1965 Age: 59 yrs : :Reason For Study: MURMUR : :Ordering Physician: GEORGIE, : :TERESA Performed By: Salazar Alvarenga : :Referring: TERESA JACQUES : + + Interpretation Summary The ejection fraction is estimated to be 60-65%. Diastolic parameters suggest probable normal left ventricular diastolic function and normal filling pressures. The right ventricle is normal in size and function. No significant valvular abnormalities. Pulmonary artery pressures cannot be estimated because of the lack of a measurable TR jet velocity but the IVC suggests a CVP of around 3 mmHg. Compared to the prior study dated 08/30/2018, no change. Procedure: A two-dimensional transthoracic echocardiogram with color flow and Doppler was performed. The study quality was technically adequate. Comparison is made with the echocardiogram of 08/30/2018. The heart rate ranged between 74-84 bpm during the study. Left Ventricle: The left ventricle is normal in size and wall thickness. The ejection fraction is estimated to be 60-65%. Diastolic parameters suggest probable normal left ventricular diastolic function and normal filling pressures. Right Ventricle: The right ventricle is normal in size and function. Atria: The left atrial size is normal. Right atrial size is normal. The interatrial septum grossly appears intact with no obvious evidence for an atrial septal defect. Mitral Valve: The mitral valve is normal in structure and function. There is no mitral valve stenosis. There is trace mitral regurgitation. Aortic Valve: The aortic valve is trileaflet. There is no aortic valve stenosis. No aortic regurgitation is present. Tricuspid Valve: The tricuspid valve is normal. There is no tricuspid stenosis. There is a trace or physiologic amount of tricuspid regurgitation. Pulmonary artery pressures cannot be estimated because of the lack of a measurable TR jet velocity but the IVC suggests a CVP of around 3 mmHg. Pulmonic Valve: The pulmonic valve is not well visualized. There is no pulmonic valvular stenosis. There is trace pulmonic regurgitation. Great Vessels: The aortic root is normal size. The dimensions of the ascending aorta are normal. The IVC is of normal diameter and collapses greater than 50% with a sniff. This suggests a low right atrial pressure of 3 mm Hg. Pericardium/ Pleura There is no pericardial effusion. There is no pleural effusion. MMode/2D Measurements & Calculations LVIDd: 3.8 cm LVOT diam: 1.9 cm LVIDs: 1.9 cm Ao root diam: 3.5 cm FS: 49.2 % asc Aorta Diam: 3.0 cm IVSd: 0.96 cm Ao Arch Diam (Prox Trans): 2.2 cm LVPWd: 0.91 cm LV aparicio. diameter/BSA (cm/m^2): 2.4 LV sys. diameter/BSA (cm/m^2): 1.2 LA A2 area: 14.9 cm2 RA long axis: 4.5 cm LA A4 area: 15.5 cm2 RA area: 15.4 cm2 LA length (vol): 4.6 cm RA vol: 44.5 ml LA vol: 42.4 ml RA : 27.7 ml/m2 LA vol index: 26.5 ml/m2 IVC diam: 1.3 cm RVD1 (basal): 3.3 cm RVD2 (mid): 2.9 cm TAPSE: 2.5 cm Doppler Measurements & Calculations Ao V2 max: 125.0 cm/sec LVOT Max Dylan: 116.5 cm/sec Ao V2 mean: 98.2 cm/sec LV V1 max P.4 mmHg Ao max P.3 mmHg LV V1 VTI: 27.1 cm Ao mean P.1 mmHg FRANKLYN(I,D): 2.6 cm2 Ao V2 VTI: 30.3 cm FRANKLYN(V,D): 2.7 cm2 sev ratio: 0.90 FRANKLYN indexed to BSA (cm^2/m^2): 1.6 MV E max dylan: 60.8 cm/sec PA V2 max: 130.7 cm/sec MV A max dylan: 78.7 cm/sec PA V2 mean: 91.4 cm/sec MV E/A: 0.77 PA mean P.7 mmHg Med Peak E' Dylan: 4.9 cm/sec PA pr(Accel): 32.8 mmHg E/E' med: 12.5 Lat Peak E' Dylan: 9.2 cm/sec E/E' lat: 6.6 E/e' average: 9.5 MV dec time: 0.18 sec SVLVOT): 78.0 ml Reading Physician:01:54 PM
== END ==
PROVIDERS: PCP Physician Assistant; Referring Provider Physician Assistant; Visit Provider Physician Assistant
DX: R01.1 Cardiac murmur, unspecified (principal)
CPT/HCPCS: 93306

== ENCOUNTER 2024-10-17 09:45 | Outpatient (RCR) | payer OTHER, SELFPAY ==
[2023-05-09 18:30] VITALS: BMI 19.3
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
--- NOTE | 2024-10-17 10:37 | PT-OP ANOTE ---
PT called and left message for pt provider line at referring medical office for Minerva Olsen PA-C for concerns about possible ligamentous instability due to pt report of passing out without cause during week and increased dizziness during assessment of cervical spine today (did not pass out during session but has increased dizzy feeling with supine transverse ligament and seated sharp-clarita testing only). PT provided call back number and recommendation for imaging. Planning to hold PT in meantime.
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
== END 2024-11-20 09:36 | disposition home or self-care (01) ==
LOC: PHYS 09:45
PROVIDERS: Family Provider Physician Assistant; PCP Physician Assistant; Referring Provider Physician Assistant; Visit Provider Physician Assistant
DX: S13.4XXD Sprain of ligaments of cervical spine, subsequent encounter (principal); M54.2 Cervicalgia; M25.611 Stiffness of right shoulder, not elsewhere classified; M25.612 Stiffness of left shoulder, not elsewhere classified; R53.1 Weakness; R26.81 Unsteadiness on feet; R26.89 Other abnormalities of gait and mobility
CPT/HCPCS: 97162; 97530; 97535

== ENCOUNTER 2025-01-09 11:47 | Emergency (ER) | payer OTHER, SELFPAY ==
[2023-05-09 18:30] VITALS: BMI 19.3
[2025-01-09] VITALS (33 sets, daily range): BP systolic 152–227; BP diastolic 94–148; PULSE 62–82; RESP 12–36; TEMP 36.4; O2SAT 96–100; BMI 20.6
--- NOTE | 2025-01-09 12:01 | DI.RAD.S_ITS ---
PROCEDURE: XR CHEST 1V INDICATIONS: Chest Pain TECHNIQUE: One view of the chest was acquired. COMPARISON: None. FINDINGS: Surgical changes and devices: None. Lungs and pleura: Lungs are clear. No pleural effusions or pneumothorax. Mediastinum: Mediastinal contours appear normal. Heart size is normal. Bones and chest wall: No suspicious bony lesions. Overlying soft tissues appear unremarkable. IMPRESSION: No acute cardiopulmonary pathology. Dictated by: Sukhjinder Donnelly M.D. on 01/09/2025 at 12:27 Approved by: Sukhjinder Donnelly M.D. on 01/09/2025 at 12:29
--- NOTE | 2025-01-09 12:13 | EKG_ITS ---
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
[2025-01-09 12:36] LABS: Add Manual Diff / Slide Review NO; Basophils Absolute Auto 100 /uL (0-100); Basophils Percent Auto 1.4 % (0-2); Eosinophils Absolute Auto 100 /uL (0-450); Eosinophils Percent Auto 2.7 % (2-4); Hematocrit 42.5 % (36-46); Hemoglobin 14.3 g/dL (12.0-16.0); Lymphocytes Absolute Auto 1400 /uL (1100-4500); Lymphocytes Percent Auto 35.3 % (25-40); Mean Corpuscular HGB Conc 33.7 % (30-36); Mean Corpuscular Hemoglobin 29.5 PG (26-34); Mean Corpuscular Volume 87.5 fL (80-100); Monocytes Absolute Auto 300 /uL (0-900); Neutrophils Absolute Auto 2000 /uL (1500-7000); Neutrophils Percent Auto 51.6 % (50-75); Platelet Count 347 X10^3/uL (150-400); Red Blood Cell Count 4.86 X10^6/uL (4.0-5.2); Red Cell Distribution Width 13.1 % (11.6-14.8); White Blood Cell Count 3.9 X10^3/uL (4.5-11.0)
[2025-01-09 12:44] LABS: Prothrombin Time 11.1 SECONDS (9.4-12.5)
[2025-01-09] MEDS: hydrALAZINE 20 MG/ML VIAL 5 MG IV (12:44)
[2025-01-09 12:46] LABS: PTT Partial Thromboplastin Tim 36 SECONDS (25.1-36.5)
[2025-01-09 12:51] LABS: Alanine Aminotransferase 34 IU/L (<35); Albumin 4.8 g/dL (3.5-5.0); Albumin Globulin Ratio 1.5 (1.0-2.8); Alkaline Phosphatase 68 U/L (38-126); Aspartate Aminotransferase 36 IU/L (14-36); BUN Creatinine Ratio 29.7 (6-22); Bilirubin Total 0.6 mg/dL (0.2-1.3); Blood Urea Nitrogen 22 mg/dL (7-17); Calcium 9.4 mg/dL (8.4-10.2); Carbon Dioxide 28 mmol/L (22-32); Chloride 101 mmol/L (98-107); Creatine Kinase 72 U/L (30-135); Estimated Glomerular Filt Rate > 60 mL/min (>60); Globulin 3.1 g/dL (1.7-4.1); Glucose 104 mg/dL (70-99); HEMOLYSIS < 15 (0-50); Lipase 87 U/L (23-300); Potassium 4.4 mmol/L (3.4-5.1); Sodium 137 mmol/L (137-145); Total Protein 7.9 g/dL (6.3-8.2)
[2025-01-09 13:03] LABS: NT-proBNP (BNP-Adult 18+) 243 pg/mL (<125); Troponin I < 0.012 ng/mL (0.01-0.034)
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
[2025-01-09] MEDS: LABETALOL 20 MG/4 ML SYRINGE 10 MG IV (13:30)
[2025-01-09] MEDS: diazePAM 10 MG/2 ML SYRINGE 5 MG IV (14:31)
--- NOTE | 2025-01-09 14:39 | EKG_ITS ---
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
[2025-01-09 15:03] LABS: Troponin I < 0.012 ng/mL (0.01-0.034)
[2025-01-09] MEDS: AMLODIPINE 5 MG TABLET PO (15:24)
[2025-01-09] MEDS: LABETALOL 20 MG/4 ML SYRINGE IV (16:39)
== END 2025-01-09 18:46 | disposition home or self-care (01) ==
PROVIDERS: Emergency Provider Emergency Medicine; Family Provider Physician Assistant; PCP Physician Assistant
DX: I10 Essential (primary) hypertension (principal); R51.9 Headache, unspecified; M54.2 Cervicalgia; F41.9 Anxiety disorder, unspecified; V89.2XXD Person injured in unspecified motor-vehicle accident, traffic, subsequent encounter
CPT/HCPCS: 36415; 71045; 80053; 82550; 83690; 83735; 83880; 84484; 85025; 85610; 85730; 93005; 96374; 96375; 96376; 99284; J0360; J3360

== ENCOUNTER 2025-01-16 10:45 | Outpatient (RCR) | payer OTHER, SELFPAY ==
[2023-05-09 18:30] VITALS: BMI 19.3
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
--- NOTE | 2025-02-11 18:04 | PT-OP ANOTE ---
patient has not been to PT in a month. attempted to phone and see if she would like to continue or discharge. left message for her to call me back
== END 2025-03-06 12:47 | disposition home or self-care (01) ==
LOC: PHYS 10:45
PROVIDERS: Family Provider Physician Assistant; PCP Physician Assistant; Referring Provider Physician Assistant; Visit Provider Physician Assistant
DX: S13.4XXD Sprain of ligaments of cervical spine, subsequent encounter (principal)
CPT/HCPCS: 97110; 97140; 97162; 97535